=== PATIENT | female | born 1940 | race Caucasian/White ===

== ENCOUNTER → 2017-01-03 | Outpatient (CLI) | payer MEDICARE ==
[~2017-01-03] MED LIST: DEPA500T2; HYDR25TA6; LEVO88TA4; LISI20TA5; PLAV75TA2; POTA20TA2; PRAV40TA; VITAMIN D50000 UNT
--- NOTE | 2017-01-04 08:52 | DEXA ---
AP SPINE L1 - L4 0.949 -1.9 -0.1 LT FEMUR TOTAL 1.006 0.0 1.9 RT FEMUR TOTAL 0.966 -0.3 1.5 TOTAL BODY TOTAL OTHER DUAL FEMUR FRAX* ASSESSMENT Risk factors: Not performed. 10 year probability of fracture Major osteoporotic fracture % Hip fracture % COMMENTS: There is low bone density of the spine and hips. The density of the spine has decreased 3.6% since the initial exam on 1999. The spine density has increased 2.2% since the most recent exam on 11/17/2014. The density of the left hip has decreased 8.3% since the initial exam on 1999. The density of the left hip has decreased 1.1% since the most recent exam on . The density of the right hip has decreased 2.4% since the initial exam on 1999. The density of the right hip has decreased 4.5% since the most recent exam on . FOLLOW-UP: Recommendation for the next bone density exam: 2 years. ANNIE
== END ==
LOC: M WHC 08:45
PROVIDERS: ATTEND Nurse Practitioner Family
DX: M85.80 Other specified disorders of bone density and structure, unspecified site (principal)

== ENCOUNTER → 2017-01-11 | Outpatient (CLI) | payer MEDICARE ==
--- NOTE | 2017-01-12 07:30 | RADONC ---
RADIATION ONCOLOGY FOLLOWUP NOTE DATE: 01/11/2017 CHART NUMBER: [id number]. DIAGNOSIS: Left breast cancer. STAGE: IA, [id number]. ECOG PERFORMANCE STATUS: Zero. FOLLOWUP NOTE: Ms. Baxter is a very pleasant, 76-year-old white female with the diagnosis of a stage IA, [id number] moderately differentiated invasive ductal carcinoma of the left breast who is presenting to us today for routine followup visit 3 years and 2 months post completion of external beam radiation therapy. The patient presents today reporting that she is doing quite well with no complaints at this time related to her radiation therapy or disease. She has no breast or bone pain. REVIEW OF SYSTEMS: The patient's review of systems is noncontributory. Denies nausea, vomiting, fevers, chills, night sweats, diplopia, headaches, anxiety or depression, anorexia, weight loss, visual disturbances, chest pain, urinary or bowel difficulties, bone pain, or neurological problems. PHYSICAL EXAMINATION: The patient is a well-developed, well-nourished, 76-year-old white female, in no acute distress. HEENT exam is normocephalic, atraumatic. Extraocular movements are intact. There is no palpable cervical, supraclavicular, infraclavicular, axillary, or inguinal lymphadenopathy present. Lungs are clear to auscultation and percussion. Heart has a regular rate and rhythm. Abdomen is benign with no hepatosplenomegaly, masses, or tenderness. Breast examination reveals no masses or discharge bilaterally. Skeletal examination reveals no tenderness to pressure or percussion of the bony skeleton. Extremities reveal no clubbing, cyanosis, or edema. Neurologic exam is grossly intact, as is the remainder of the physical examination. ASSESSMENT: The patient is clinically CURRY at this time and will be seen by us again in 1 year for further followup. She will also continue to be followed by her other physicians as well. cc: MD Dawn Chen MD, FACP MD Yaya Greenwood PA Tammy Root, FERNANDEZ
== END ==
LOC: M ONCR 11:00
PROVIDERS: ATTEND Radiology Radiation Oncology
DX: C50.212 Malignant neoplasm of upper-inner quadrant of left female breast (principal)

== ENCOUNTER → 2018-01-10 | Outpatient (CLI) | payer MEDICARE | LOC: M ONCR 13:09 | DX: C50.212 Malignant neoplasm of upper-inner quadrant of left female breast (principal) | CPT/HCPCS: G0463 ==

== ENCOUNTER → 2018-08-14 | Outpatient (CLI) | payer MEDICARE ==
[~2018-08-14] MED LIST changes: +ANAS1TAB2 PO; +ASPI1TAB22 PO; +CALC1TAB8 PO; +KLOR10TA76 PO; +OLME1TAB15 PO; +PRAV40TA2 PO; +SYNT125T PO; +VITA2000 PO
--- NOTE | 2018-08-15 11:50 | REP ---
PET/CT: History: Restaging breast carcinoma. New lung mass. Comparisons: Chest CT study from [facility] July 31, 2018. CT abdomen from the same facility July 28, 2018. The chest CT is reported as showing numerous small pulmonary nodules. There are no remote prior chest CTs available. TECHNIQUE: 49 minutes following the intravenous injection of a 8.92 mCi dose of F-18 FDG, three-dimensional PET scintigraphy is acquired from the skull base to the proximal thighs. Triplanar noncontrast CT scanning is acquired through the same anatomic range for attenuation correction, and image registration with scan parameters optimized to minimize radiation exposure to the patient. PET scintigraphy and CT datasets were fused and displayed on a workstation with multiplanar and projection display capability. PET/CT Findings: There is no abnormal hypermetabolic uptake within the thorax. Head and neck soft tissues are unremarkable. 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 No abnormal hypermetabolic uptake is seen in the visualized intracranial contents. No abnormal pulmonary parenchymal hypermetabolic uptake is seen. No axillary or internal mammary alondra hypermetabolic uptake is seen. In the abdomen and pelvis, normal hepatic, splenic, gastrointestinal, and genitourinary FDG accumulation is seen. No abnormal hypermetabolic uptake is seen in the abdomen or pelvis. Impression: Negative PET scintigraphy. No abnormal hypermetabolic uptake is seen. Electronically Signed by Albert Morocho MD 08/15/2018 08:05 P
== END ==
LOC: M PLARAD 15:15
PROVIDERS: ATTEND Surgery
DX: Z85.3 Personal history of malignant neoplasm of breast (principal); R91.8 Other nonspecific abnormal finding of lung field
CPT/HCPCS: 78815; A9552

== ENCOUNTER → 2019-01-09 | Outpatient (CLI) | payer MEDICARE ==
--- NOTE | 2019-01-11 07:11 | RADONC ---
RADIATION ONCOLOGY FOLLOWUP NOTE DATE: 01/09/2019 CHART #: [id number] DIAGNOSIS: Left breast cancer. STAGE: I A, [id number]. ECOG PERFORMANCE STATUS: 0. FOLLOWUP NOTE: Mrs. Baxter is a 78-year-old woman with a diagnosis of stage I A, [id number], moderately differentiated invasive ductal carcinoma of the left breast who presents for a followup visit a little over 5 years status post completion of her external beam radiotherapy. She denies nausea, vomiting, coughing, sputum production or hemoptysis. Her energy level is adequate and she is able to maintain most of her day-to-day activities without any alteration of her lifestyle. PHYSICAL EXAMINATION: There is no palpable peripheral lymphadenopathy. The skin within the irradiated volume shows no evidence of significant skin changes. No masses are palpable on either breast. Lungs are clear. Heart: Regular. Abdomen: Without evidence of hepatomegaly, masses or deep abdominal tenderness. Extremities: Without cyanosis, clubbing or edema. Neurologic Examination: Physiologic. IMPRESSION: Clinically CURRY. PLAN: We would like to see her on a p.r.n. basis and she was advised to return to her referring physicians as per their directions. cc: MD North Chen MD Michael Hinman, PA Tammy Root, NP
== END ==
LOC: M ONCR 13:01
PROVIDERS: ATTEND Radiology Radiation Oncology
DX: C50.212 Malignant neoplasm of upper-inner quadrant of left female breast (principal)

== ENCOUNTER 2020-08-21 13:02 | Emergency (ER) | payer MEDICARE ==
[~2020-08-21] VITALS: Ht 149.9 cm; Wt 81.4 kg
[~2020-08-21 13:02] MED LIST changes: -OLME1TAB15 PO; +OLME1TAB53 PO
[2020-08-21] MEDS ORDERED: MECL-136 PO (13:38)
[2020-08-21] MEDS ORDERED: LOSA100T5 PO (13:38)
[2020-08-21] MEDS ORDERED: VITACAP8 PO (13:38)
[2020-08-21] MEDS ORDERED: FERR325T3 PO (13:38)
[2020-08-21] MEDS ORDERED: OMEP-218 PO (13:38)
[2020-08-21 14:26] LABS: HEMATOCRIT 26.9 % (36.0-47.0); HEMOGLOBIN 8.1 g/dl (12.0-15.5); MEAN CORPUSCULAR HEMOGLOBIN 25.1 pg (27.0-33.0); MEAN CORPUSCULAR HGB CONC 30.1 g/dl (32.0-36.5); MEAN CORPUSCULAR VOLUME 83.3 fl (80.0-96.0); PLATELET COUNT, AUTOMATED 200 10^3/uL (150-450); RED BLOOD COUNT 3.23 10^6/uL (4.00-5.40); WHITE BLOOD COUNT 3.7 10^3/uL (4.0-10.0)
[2020-08-21 14:37] LABS: INR 1.04; PROTHROMBIN TIME 13.8 SECONDS (12.5-14.3)
[2020-08-21 14:53] LABS: ALBUMIN 2.9 GM/DL (3.2-5.2); ALT/SGPT 28 U/L (12-78); BILIRUBIN,TOTAL 0.5 MG/DL (0.2-1.0); BLOOD UREA NITROGEN 22 MG/DL (7-18); CALCIUM LEVEL 9.2 MG/DL (8.8-10.2); CARBON DIOXIDE LEVEL 27 MEQ/L (21-32); CHLORIDE LEVEL 110 MEQ/L (98-107); CK-MB VALUE MASS 1.9 NG/ML (<3.6); CPK CREATINE PHOSPHOKINASE 86 U/L (26-192); CREATININE FOR GFR 0.85 MG/DL (0.55-1.30); GLOMERULAR FILTRATION RATE > 60.0 (>32); GLUCOSE, FASTING 159 MG/DL (70-100); MB/CK RELATIVE INDEX 2.21 (< OR =4); POTASSIUM SERUM 3.3 MEQ/L (3.5-5.1); SODIUM LEVEL 142 MEQ/L (136-145); TOTAL PROTEIN 6.8 GM/DL (6.4-8.2); TROPONIN I < 0.02 NG/ML (< 0.10)
[2020-08-21 15:31] LABS: FERRITIN 7 NG/ML (8-252); IRON (FE) 59 UG/DL (50-170); TOTAL IRON BINDING CAPACITY 421 UG/DL (250-450)
[2020-08-21 15:51] VITALS: BP 114/56
--- NOTE | 2020-08-21 18:21 | ECGEPIP ---
[facility] - ED Test Date: 2020-08-21 Pat Name: TRACY LEVINE Department: Room: - Gender: Female Medical Clerical Assistant: LAURENCE : 1940 Requested By: Radha Alex Order Number: [id number] Reading MD: Fidel Downey Measurements Intervals [place] Rate: 100 P: 68 DE: 180 QRS: -43 QRSD: 128 T: 69 QT: 394 QTc: 508 Interpretive Statements Normal sinus rhythm Left axis deviation Nonspecific intraventricular block Minimal voltage criteria for LVH, may be normal variant baseline artifact Comparison tracing not on file Electronically Signed on 08-21-2020 18:21:08 EDT by Fidel Downey
== END 2020-08-21 15:54 | disposition home or self-care (01) ==
LOC: M ED 13:02
DX: D50.9 Iron deficiency anemia, unspecified (principal); I10 Essential (primary) hypertension; E07.9 Disorder of thyroid, unspecified; E78.5 Hyperlipidemia, unspecified; G43.909 Migraine, unspecified, not intractable, without status migrainosus; Z79.899 Other long term (current) drug therapy; Z79.82 Long term (current) use of aspirin; Z79.890 Hormone replacement therapy

== ENCOUNTER 2022-05-04 21:40 | Inpatient (IN) | payer MEDICARE, BC ==
[~2022-05-04] VITALS: Ht 149.9 cm; Wt 81.0 kg
[2022-05-04] MEDS: PANTOPRAZOLE 40MG VIAL IV SCH (21:00)
[~2022-05-04 21:40] MED LIST changes: -CIPR250T3 PO; -FERR324T21 PO; -FURO40TA2 PO; -LOSA100T45 PO; -OMEP1CAP73 PO; -RA B1TAB2 PO; -SYNT112T2 PO; -VITA200016 PO
[2022-05-04 22:50] LABS: BASO # 0.1 10^3/uL (0.0-0.2); BASO % 1.3 % (0.0-1.0); EOS # 0.2 10^3/uL (0.0-0.5); EOS % 5.4 % (0.0-3.0); HEMATOCRIT 21.8 % (36.0-47.0); LYMPH # 0.7 10^3/uL (1.5-5.0); LYMPH % 17.4 % (24.0-44.0); MEAN CORPUSCULAR HEMOGLOBIN 25.9 pg (27.0-33.0); MEAN CORPUSCULAR HGB CONC 28.4 g/dl (32.0-36.5); MEAN CORPUSCULAR VOLUME 91.2 fl (80.0-96.0); MONO # 0.5 10^3/uL (0.0-0.8); MONO % 13.1 % (2.0-8.0); NEUTROPHILS # 2.3 10^3/uL (1.5-8.5); NEUTROPHILS % 62.5 % (36.0-66.0); PLATELET COUNT, AUTOMATED 162 10^3/uL (150-450); RED BLOOD COUNT 2.39 10^6/uL (4.00-5.40); WHITE BLOOD COUNT 3.7 10^3/uL (4.0-10.0)
[2022-05-04 22:51] LABS: HEMOGLOBIN 6.2 g/dl (12.0-15.5)
[2022-05-04 23:09] LABS: CK-MB VALUE MASS < 1.0 NG/ML (<3.6); LIPASE 37 U/L (12-53)
[2022-05-04 23:11] LABS: ALBUMIN 2.4 G/DL (3.2-5.2); ALKALINE PHOSPHATASE 114 U/L (46-116); ALT/SGPT 37 U/L (7.0-40); AST/SGOT 46 U/L (<34); BILIRUBIN,DIRECT 0.2 MG/DL (<0.4); BILIRUBIN,TOTAL 0.4 MG/DL (0.3-1.2); BLOOD UREA NITROGEN 20 MG/DL (9-23); CALCIUM LEVEL 8.2 MG/DL (8.3-10.6); CARBON DIOXIDE LEVEL 26 MMOL/L (20-31); CHLORIDE LEVEL 110 MMOL/L (98-107); CPK CREATINE PHOSPHOKINASE 63 U/L (34-145); CREATININE FOR GFR 0.89 MG/DL (0.55-1.30); GLOMERULAR FILTRATION RATE > 60.0 (>32); GLUCOSE, FASTING 125 MG/DL (74-106); MB/CK RELATIVE INDEX 1.58 (< OR =4); POTASSIUM SERUM 4.2 MMOL/L (3.5-5.1); SODIUM LEVEL 144 MMOL/L (136-145); TOTAL PROTEIN 5.6 G/DL (5.7-8.2)
[2022-05-05] VITALS (10 sets, daily range): BP systolic 126–152; BP diastolic 63–87
[2022-05-05] MEDS ORDERED: FUROSEMIDE 40MG/4ML VIAL IV ONE (01:00)
[2022-05-05] MEDS ORDERED: VITA200016 PO (01:09)
[2022-05-05] MEDS ORDERED: FURO40TA2 PO (01:09)
[2022-05-05] MEDS ORDERED: FERR324T21 PO (01:09)
[2022-05-05] MEDS ORDERED: SYNT112T2 PO (01:09)
[2022-05-05] MEDS ORDERED: RA B1TAB2 PO (01:09)
[2022-05-05] MEDS ORDERED: LOSA100T45 PO (01:09)
[2022-05-05] MEDS ORDERED: OMEP1CAP73 PO (01:09)
[2022-05-05] MEDS ORDERED: CIPR250T3 PO (01:09)
[2022-05-05] MEDS ORDERED: MECL-136 PO (01:09)
[2022-05-05] MEDS ORDERED: HOME MED LIST COMPLETE! XX SCH (01:15)
[2022-05-05 01:42] LABS: RSV AMPLIFICATION NEGATIVE (NEGATIVE)
[2022-05-05 06:04] LABS: HEMATOCRIT 28.9 % (36.0-47.0); MEAN CORPUSCULAR HEMOGLOBIN 26.7 pg (27.0-33.0); MEAN CORPUSCULAR HGB CONC 30.4 g/dl (32.0-36.5); MEAN CORPUSCULAR VOLUME 87.8 fl (80.0-96.0); PLATELET COUNT, AUTOMATED 159 10^3/uL (150-450); RED BLOOD COUNT 3.29 10^6/uL (4.00-5.40)
[2022-05-05 06:21] LABS: HEMOGLOBIN 8.8 g/dl (12.0-15.5)
[2022-05-05 06:28] LABS: IRON (FE) 279 UG/DL (50-170); PERCENT SATURATION 72.1 % (13.2-45.0); TOTAL IRON BINDING CAPACITY 387 UG/DL (250-425)
[2022-05-05 06:29] LABS: BLOOD UREA NITROGEN 18 MG/DL (9-23); CALCIUM LEVEL 8.3 MG/DL (8.3-10.6); CARBON DIOXIDE LEVEL 26 MMOL/L (20-31); CHLORIDE LEVEL 109 MMOL/L (98-107); CREATININE FOR GFR 0.85 MG/DL (0.55-1.30); GLOMERULAR FILTRATION RATE > 60.0 (>32); GLUCOSE, FASTING 115 MG/DL (74-106); POTASSIUM SERUM 3.8 MMOL/L (3.5-5.1); SODIUM LEVEL 143 MMOL/L (136-145)
[2022-05-05 06:31] LABS: FERRITIN 6.7 NG/ML (7.3-270.7)
[2022-05-05] MEDS ORDERED: FUROSEMIDE 40MG/4ML VIAL IV SCH (09:00)
[2022-05-05] MEDS ORDERED: MECLIZINE 12.5 MG TAB PO PRN (11:10)
[2022-05-05] MEDS ORDERED: ISOVUE-370 76% 100ML VIAL As Ordered ONE (11:13)
[2022-05-05] MEDS ORDERED: FERRIC CARBOXYMALTOSE INJ 750 MG, VIAL MATE ADAPTER 1 EACH in NS 250 ML IV ONE (13:00)
[2022-05-05] MEDS: LOSARTAN 50MG TABLET PO SCH (13:39)
[2022-05-05] MEDS: cefTRIAXone SOD 1 GM in D5W MINI-BAG PLUS 50 ML IV SCH (13:39)
[2022-05-05] MEDS: PANTOPRAZOLE 40MG VIAL IV SCH ×2 (13:40→20:16)
[2022-05-05] MEDS: LEVOTHYROXINE 112MCG TABLET (0.112MG) PO SCH (13:47)
[2022-05-05 14:46] LABS: HEPATITIS B SURFACE ANTIGEN NEGATIVE (NEGATIVE)
[2022-05-05] MEDS ORDERED: OCTREOTIDE ACETATE 1,200 MCG in NS 238.8 ML IV SCH (15:00)
[2022-05-05 15:07] LABS: HEPATITIS B CORE ANTIBODY IGM NEGATIVE (NEGATIVE); HEPATITIS C VIRUS ABY INDEX 0.1 INDEX (<0.8)
[2022-05-05] MEDS: ACETAMINOPHEN 500 MG TAB PO PRN (16:33)
[2022-05-05] MEDS: PRAVASTATIN 20 MG TAB PO SCH (20:16)
[2022-05-06 05:02] VITALS: BP 121/68
[2022-05-06] MEDS: LEVOTHYROXINE 112MCG TABLET (0.112MG) PO SCH (05:30)
[2022-05-06 06:10] LABS: HEMATOCRIT 26.8 % (36.0-47.0); MEAN CORPUSCULAR HEMOGLOBIN 26.5 pg (27.0-33.0); MEAN CORPUSCULAR HGB CONC 29.9 g/dl (32.0-36.5); MEAN CORPUSCULAR VOLUME 88.7 fl (80.0-96.0); PLATELET COUNT, AUTOMATED 139 10^3/uL (150-450); RED BLOOD COUNT 3.02 10^6/uL (4.00-5.40); WHITE BLOOD COUNT 3.6 10^3/uL (4.0-10.0)
[2022-05-06 06:44] LABS: MAGNESIUM LEVEL 1.9 MG/DL (1.8-2.4)
[2022-05-06 06:50] LABS: ALBUMIN 2.3 G/DL (3.2-5.2); ALKALINE PHOSPHATASE 102 U/L (46-116); ALT/SGPT 31 U/L (7.0-40); AST/SGOT 30 U/L (<34); BILIRUBIN,TOTAL 1.2 MG/DL (0.3-1.2); BLOOD UREA NITROGEN 15 MG/DL (9-23); CALCIUM LEVEL 8.3 MG/DL (8.3-10.6); CARBON DIOXIDE LEVEL 26 MMOL/L (20-31); CHLORIDE LEVEL 107 MMOL/L (98-107); CREATININE FOR GFR 0.86 MG/DL (0.55-1.30); GLOMERULAR FILTRATION RATE > 60.0 (>32); GLUCOSE, FASTING 119 MG/DL (74-106); POTASSIUM SERUM 4.2 MMOL/L (3.5-5.1); SODIUM LEVEL 141 MMOL/L (136-145); TOTAL PROTEIN 5.3 G/DL (5.7-8.2)
[2022-05-06] MEDS ORDERED: ASPIRIN 81MG ENTERIC TABLET PO SCH (09:00)
[2022-05-06] MEDS ORDERED: LIDOCAINE 2% 100MG/5ML SDV (FOR ANES.) As Ordered ONE (09:26)
[2022-05-06] MEDS ORDERED: propofoL 200 MG/20 ML VIAL As Ordered ONE ×2 (09:26→11:30)
[2022-05-06] MEDS: PANTOPRAZOLE 40MG VIAL IV SCH ×2 (10:25→20:33)
[2022-05-06] MEDS: LOSARTAN 50MG TABLET PO SCH (10:26)
[2022-05-06] MEDS ORDERED: LIDOCAINE 1% MDV 20ML VIAL As Ordered ONE (13:30)
[2022-05-06 14:00] VITALS: BP 126/65
[2022-05-06] MEDS: cefTRIAXone SOD 1 GM in D5W MINI-BAG PLUS 50 ML IV SCH (14:26)
[2022-05-06] MEDS: ACETAMINOPHEN 500 MG TAB PO PRN (14:29)
[2022-05-06 15:34] LABS: SOURCE, BODY FLUID ALBUMIN ASCITES
[2022-05-06 15:39] LABS: SOURCE, BODY FLUID GLUCOSE ASCITES
[2022-05-06 15:41] LABS: SOURCE, BODY FLUID TOT PROTEIN ASCITES; TOTAL PROTEIN, BODY FLUID < 2.0 G/DL (NOT ESTABLISHED)
[2022-05-06 16:06] LABS: APPEARANCE, BODY FLUID HAZY (CLEAR); ASCITES FL COLOR YELLOW (COLORLESS); SOURCE, BODY FLUID ASCITES
[2022-05-06 20:00] VITALS: BP 134/62
[2022-05-06] MEDS: PRAVASTATIN 20 MG TAB PO SCH (20:33)
[2022-05-07] MEDS: LEVOTHYROXINE 112MCG TABLET (0.112MG) PO SCH (05:19)
[2022-05-07 05:45] VITALS: BP 120/59
[2022-05-07 06:08] LABS: HEMATOCRIT 28.2 % (36.0-47.0); MEAN CORPUSCULAR HGB CONC 28.4 g/dl (32.0-36.5); MEAN CORPUSCULAR VOLUME 91.6 fl (80.0-96.0); PLATELET COUNT, AUTOMATED 142 10^3/uL (150-450); RED BLOOD COUNT 3.08 10^6/uL (4.00-5.40); WHITE BLOOD COUNT 3.9 10^3/uL (4.0-10.0)
[2022-05-07 06:32] LABS: MAGNESIUM LEVEL 1.8 MG/DL (1.8-2.4)
[2022-05-07 06:34] LABS: ALBUMIN 2.1 G/DL (3.2-5.2); ALKALINE PHOSPHATASE 92 U/L (46-116); ALT/SGPT 27 U/L (7.0-40); AST/SGOT 48 U/L (<34); BILIRUBIN,TOTAL 0.6 MG/DL (0.3-1.2); BLOOD UREA NITROGEN 14 MG/DL (9-23); CALCIUM LEVEL 7.9 MG/DL (8.3-10.6); CARBON DIOXIDE LEVEL 24 MMOL/L (20-31); CHLORIDE LEVEL 107 MMOL/L (98-107); CREATININE FOR GFR 0.85 MG/DL (0.55-1.30); GLOMERULAR FILTRATION RATE > 60.0 (>32); GLUCOSE, FASTING 124 MG/DL (74-106); POTASSIUM SERUM 4.3 MMOL/L (3.5-5.1); SODIUM LEVEL 139 MMOL/L (136-145); TOTAL PROTEIN 5.3 G/DL (5.7-8.2)
[2022-05-07] MEDS ORDERED: ASPIRIN 81MG CHEW TABLET PO SCH (09:00)
[2022-05-07 09:21] VITALS: BP 117/59
[2022-05-07 09:25] VITALS: BP 117/59
[2022-05-07] MEDS: PANTOPRAZOLE 40MG VIAL IV SCH (09:25)
[2022-05-07] MEDS: LOSARTAN 50MG TABLET PO SCH (09:25)
[2022-05-07] MEDS ORDERED: LASI20TA3 PO (10:55)
[2022-05-07] MEDS ORDERED: COZA50TA PO ×2 (10:55→15:23)
[2022-05-07] MEDS ORDERED: ASPI81CH8 PO ×2 (10:55→15:23)
[2022-05-07] MEDS ORDERED: CEFD300C41 PO ×2 (11:53→15:23)
[2022-05-07] MEDS ORDERED: ESSE250T PO ×2 (12:35→15:23)
[2022-05-07] MEDS ORDERED: OMEP40CA4 PO ×2 (12:35→15:23)
[2022-05-07] MEDS: cefTRIAXone SOD 1 GM in D5W MINI-BAG PLUS 50 ML IV SCH (13:14)
[2022-05-07] MEDS ORDERED: FURO40TA2 PO (15:23)
== END 2022-05-07 14:49 | disposition home or self-care (01) | DRG 812 ==
LOC: M ED 21:40 → M ED INP 05-05 00:57 → ENRESERV 05-05 10:54 → M MSPAV 05-05 12:25
PROVIDERS: ADMIT Internal Medicine; ATTEND Internal Medicine
PROC: 30233N1 Transfusion of Nonautologous Red Blood Cells into Peripheral Vein, Percutaneous Approach (ICD-10-PCS; 2022-05-04)
PROC: B246ZZZ Ultrasonography of Right and Left Heart (ICD-10-PCS; 2022-05-05)
PROC: 0W9G3ZX Drainage of Peritoneal Cavity, Percutaneous Approach, Diagnostic (ICD-10-PCS; 2022-05-06)
PROC: 0DJ08ZZ Inspection of Upper Intestinal Tract, Via Natural or Artificial Opening Endoscopic (ICD-10-PCS; principal; 2022-05-06 12:00)
DX: D50.9 Iron deficiency anemia, unspecified (principal); R18.8 Other ascites; K76.6 Portal hypertension; N39.0 Urinary tract infection, site not specified; E03.9 Hypothyroidism, unspecified; I10 Essential (primary) hypertension; H81.10 Benign paroxysmal vertigo, unspecified ear; K74.60 Unspecified cirrhosis of liver; I87.2 Venous insufficiency (chronic) (peripheral); K29.80 Duodenitis without bleeding; K29.70 Gastritis, unspecified, without bleeding; Z66 Do not resuscitate; Z85.3 Personal history of malignant neoplasm of breast; Z86.73 Personal history of transient ischemic attack (TIA), and cerebral infarction without residual deficits; Z79.82 Long term (current) use of aspirin; Z79.890 Hormone replacement therapy; Z79.899 Other long term (current) drug therapy; Z92.3 Personal history of irradiation

== ENCOUNTER → 2022-05-04 | Outpatient (CLI) | payer MEDICARE ==
[~2022-05-04] MED LIST changes: +ASPI81CH8 PO; -CALC1TAB8 PO; +CALC600T67 PO; +CEFD300C41 PO; +CIPR250T3 PO; +COZA50TA PO; +ESSE250T PO; +FERR324T21 PO; +FERR325T3 PO; +FURO40TA2 PO; -KLOR10TA76 PO; +LASI20TA3 PO; +LEVO112T2; +LOSA100T45 PO; +LOSA100T5 PO; +MECL-136 PO; +OMEP-173 PO; +OMEP1CAP73 PO; +OMEP40CA4 PO; +POTA-136 PO; +RA B1TAB2 PO; +SYNT112T2 PO; +VITA1CHW7 PO; +VITA200016 PO; +VITACAP8 PO
== END ==
LOC: M WUC 09:41
PROVIDERS: ATTEND Physician Assistant
DX: R06.02 Shortness of breath (principal); R91.8 Other nonspecific abnormal finding of lung field

== ENCOUNTER → 2022-05-04 | Outpatient (CLI) | payer MEDICARE ==
[~2022-05-04] MED LIST changes: -ASPI81CH8 PO; -CEFD300C41 PO; -COZA50TA PO; -ESSE250T PO; -LASI20TA3 PO; -OMEP40CA4 PO
[2022-05-04 20:03] LABS: MAGNESIUM LEVEL 2.1 MG/DL (1.8-2.4); MEAN CORPUSCULAR HEMOGLOBIN 26.4 pg (27.0-33.0); MEAN CORPUSCULAR HGB CONC 28.6 g/dl (32.0-36.5); MEAN CORPUSCULAR VOLUME 92.1 fl (80.0-96.0); PLATELET COUNT, AUTOMATED 160 10^3/uL (150-450); RED BLOOD COUNT 2.39 10^6/uL (4.00-5.40); WHITE BLOOD COUNT 4.5 10^3/uL (4.0-10.0)
[2022-05-04 20:04] LABS: BLOOD UREA NITROGEN 20 MG/DL (9-23); CALCIUM LEVEL 8.3 MG/DL (8.3-10.6); CARBON DIOXIDE LEVEL 26 MMOL/L (20-31); CHLORIDE LEVEL 109 MMOL/L (98-107); CREATININE FOR GFR 0.91 MG/DL (0.55-1.30); GLOMERULAR FILTRATION RATE > 60.0 (>32); GLUCOSE, FASTING 138 MG/DL (74-106); SODIUM LEVEL 144 MMOL/L (136-145)
[2022-05-04 20:28] LABS: HEMOGLOBIN 6.3 g/dl (12.0-15.5)
== END ==
LOC: M WUC 15:53
PROVIDERS: ATTEND Physician Assistant
DX: I50.9 Heart failure, unspecified (principal)

== ENCOUNTER 2022-07-11 15:27 | Inpatient (IN) | payer MEDICARE, BC ==
[~2022-07-11] VITALS: Ht 149.9 cm; Wt 82.5 kg
[~2022-07-11 15:27] MED LIST changes: +ASPI81CH8 PO; +CEFD300C41 PO; +CIPR250T3 PO; +COZA50TA PO; +ESSE250T PO; +FERR324T21 PO; +FURO20TA2 PO; +FURO40TA2 PO; +LASI20TA3 PO; +LOSA100T45 PO; +OMEP1CAP73 PO; +OMEP40CA4 PO; +RA B1TAB2 PO; +SYNT112T2 PO; +VITA200016 PO
[2022-07-11 16:27] LABS: VENOUS BASE EXCESS 4.7 (-2.0-2.0); VENOUS O2 SATURATION 91.8 % (60.0-80.0); VENOUS PARTIAL PRESSURE CO2 42.1 mmHg (38.0-50.0); VENOUS PARTIAL PRESSURE O2 62.7 mmHg (30.0-50.0); VENOUS PH 7.456 UNITS (7.330-7.430); VENOUS STANDARD HCO3 28.6 MEQ/L; VENOUS TOTAL CO2 30.3 MEQ/L (24.0-28.0)
[2022-07-11 16:32] LABS: BASO % 0.3 % (0.0-1.0); EOS # 0.2 10^3/uL (0.0-0.5); EOS % 3.1 % (0.0-3.0); HEMATOCRIT 27.9 % (36.0-47.0); HEMOGLOBIN 8.3 g/dl (12.0-15.5); LYMPH # 0.6 10^3/uL (1.5-5.0); LYMPH % 9.9 % (24.0-44.0); MEAN CORPUSCULAR HEMOGLOBIN 25.2 pg (27.0-33.0); MEAN CORPUSCULAR HGB CONC 29.7 g/dl (32.0-36.5); MEAN CORPUSCULAR VOLUME 84.5 fl (80.0-96.0); MONO # 0.6 10^3/uL (0.0-0.8); MONO % 10.4 % (2.0-8.0); NEUTROPHILS # 4.6 10^3/uL (1.5-8.5); PLATELET COUNT, AUTOMATED 203 10^3/uL (150-450); WHITE BLOOD COUNT 6.1 10^3/uL (4.0-10.0)
[2022-07-11] MEDS ORDERED: FUROSEMIDE 40MG/4ML VIAL IV ONE (16:40)
[2022-07-11 16:50] LABS: INR 1.13; PROTHROMBIN TIME 14.7 SECONDS (12.5-14.5)
[2022-07-11 16:59] LABS: ALBUMIN 2.5 G/DL (3.2-5.2); ALKALINE PHOSPHATASE 123 U/L (46-116); ALT/SGPT 44 U/L (7.0-40); AST/SGOT 33 U/L (<34); BILIRUBIN,DIRECT 0.4 MG/DL (<0.4); BILIRUBIN,TOTAL 1.2 MG/DL (0.3-1.2); BLOOD UREA NITROGEN 20 MG/DL (9-23); CALCIUM LEVEL 8.6 MG/DL (8.3-10.6); CARBON DIOXIDE LEVEL 31 MMOL/L (20-31); CHLORIDE LEVEL 103 MMOL/L (98-107); CREATININE FOR GFR 0.72 MG/DL (0.55-1.30); GLOMERULAR FILTRATION RATE > 60.0 (>32); GLUCOSE, FASTING 118 MG/DL (74-106); SODIUM LEVEL 142 MMOL/L (136-145); TOTAL PROTEIN 5.9 G/DL (5.7-8.2)
[2022-07-11 17:08] LABS: RSV AMPLIFICATION NEGATIVE (NEGATIVE)
[2022-07-11] MEDS ORDERED: POTASSIUM CHLORIDE 10MEQ SR TABLET PO ONE (17:15)
[2022-07-11] MEDS ORDERED: FURO40TA2 PO (19:35)
[2022-07-11] MEDS ORDERED: ASPI81CH33 PO (19:35)
[2022-07-11] MEDS ORDERED: HOME MED LIST COMPLETE! XX SCH (19:40)
[2022-07-11 21:45] VITALS: BP 119/62
[2022-07-11 23:15] LABS: HEMATOCRIT 25.8 % (36.0-47.0); HEMOGLOBIN 7.7 g/dl (12.0-15.5)
[2022-07-11 23:58] LABS: BLOOD UREA NITROGEN 19 MG/DL (9-23); CARBON DIOXIDE LEVEL 30 MMOL/L (20-31); CHLORIDE LEVEL 103 MMOL/L (98-107); GLOMERULAR FILTRATION RATE > 60.0 (>32); GLUCOSE, FASTING 245 MG/DL (74-106); POTASSIUM SERUM 2.9 MMOL/L (3.5-5.1); SODIUM LEVEL 140 MMOL/L (136-145)
[2022-07-12] VITALS (7 sets, daily range): BP systolic 109–135; BP diastolic 58–76
[2022-07-12] MEDS ORDERED: PANTOPRAZOLE 40MG VIAL IV ONE (00:10)
[2022-07-12] MEDS: POTASSIUM CHLORIDE 10MEQ SR TABLET PO SCH ×2 (00:25→02:05)
[2022-07-12] MEDS: LEVOTHYROXINE 112MCG TABLET (0.112MG) PO SCH (05:47)
[2022-07-12 06:13] LABS: HEMATOCRIT 28.4 % (36.0-47.0); HEMOGLOBIN 8.8 g/dl (12.0-15.5); MEAN CORPUSCULAR HEMOGLOBIN 26.3 pg (27.0-33.0); MEAN CORPUSCULAR VOLUME 84.8 fl (80.0-96.0); PLATELET COUNT, AUTOMATED 182 10^3/uL (150-450); RED BLOOD COUNT 3.35 10^6/uL (4.00-5.40); WHITE BLOOD COUNT 5.2 10^3/uL (4.0-10.0)
[2022-07-12 06:55] LABS: ALBUMIN 2.2 G/DL (3.2-5.2); ALKALINE PHOSPHATASE 116 U/L (46-116); ALT/SGPT 38 U/L (7.0-40); AST/SGOT 27 U/L (<34); BILIRUBIN,TOTAL 2.2 MG/DL (0.3-1.2); BLOOD UREA NITROGEN 19 MG/DL (9-23); CALCIUM LEVEL 8.1 MG/DL (8.3-10.6); CARBON DIOXIDE LEVEL 31 MMOL/L (20-31); CHLORIDE LEVEL 107 MMOL/L (98-107); CREATININE FOR GFR 0.69 MG/DL (0.55-1.30); GLOMERULAR FILTRATION RATE > 60.0 (>32); GLUCOSE, FASTING 109 MG/DL (74-106); POTASSIUM SERUM 3.7 MMOL/L (3.5-5.1); SODIUM LEVEL 141 MMOL/L (136-145); TOTAL PROTEIN 5.1 G/DL (5.7-8.2)
[2022-07-12] MEDS: FUROSEMIDE 20 MG TAB PO SCH (08:55)
[2022-07-12] MEDS: PANTOPRAZOLE 40MG VIAL IV SCH ×2 (08:55→20:12)
[2022-07-12 15:14] LABS: SOURCE, BODY FLUID ASCITES
[2022-07-12 15:15] LABS: APPEARANCE, BODY FLUID CLOUDY (CLEAR); ASCITES FL COLOR PALE YELLOW (COLORLESS)
[2022-07-12 15:50] LABS: SOURCE, BODY FLUID ALBUMIN ASCITES
[2022-07-12 15:54] LABS: SOURCE, BODY FLUID GLUCOSE ASCITES
[2022-07-12 15:58] LABS: SOURCE, BODY FLUID TOT PROTEIN ASCITES; TOTAL PROTEIN, BODY FLUID < 2.0 G/DL (NOT ESTABLISHED)
[2022-07-12] MEDS ORDERED: ACETAMINOPHEN TAB 650MG DOSE (2X325MG) PO PRN (20:20)
[2022-07-12] MEDS ORDERED: PRAVASTATIN 20 MG TAB PO SCH (21:00)
[2022-07-13 06:00] VITALS: BP 124/65
[2022-07-13] MEDS: LEVOTHYROXINE 112MCG TABLET (0.112MG) PO SCH (06:07)
[2022-07-13] MEDS: PANTOPRAZOLE 40MG VIAL IV SCH (10:54)
[2022-07-13] MEDS: FUROSEMIDE 20 MG TAB PO SCH (10:54)
== END 2022-07-13 14:22 | disposition home health service (06) | DRG 433 ==
LOC: M ED 15:27 → M ED INP 20:06 → M MSPAV 21:45
PROVIDERS: ADMIT Family Medicine; ATTEND General Practice
PROC: 30233N1 Transfusion of Nonautologous Red Blood Cells into Peripheral Vein, Percutaneous Approach (ICD-10-PCS; 2022-07-11)
PROC: 0W9G3ZZ Drainage of Peritoneal Cavity, Percutaneous Approach (ICD-10-PCS; principal; 2022-07-12 10:00)
DX: K74.60 Unspecified cirrhosis of liver (principal); I69.351 Hemiplegia and hemiparesis following cerebral infarction affecting right dominant side; R18.8 Other ascites; I10 Essential (primary) hypertension; E78.5 Hyperlipidemia, unspecified; K64.9 Unspecified hemorrhoids; K21.9 Gastro-esophageal reflux disease without esophagitis; M19.90 Unspecified osteoarthritis, unspecified site; E03.9 Hypothyroidism, unspecified; E87.6 Hypokalemia; R91.1 Solitary pulmonary nodule; D63.8 Anemia in other chronic diseases classified elsewhere; H81.10 Benign paroxysmal vertigo, unspecified ear; K42.9 Umbilical hernia without obstruction or gangrene; Z66 Do not resuscitate; Z85.3 Personal history of malignant neoplasm of breast; Z85.828 Personal history of other malignant neoplasm of skin; Z86.010 Personal history of colon polyps; Z79.82 Long term (current) use of aspirin; Z79.890 Hormone replacement therapy; Z79.899 Other long term (current) drug therapy

== ENCOUNTER 2022-07-28 11:20 | Inpatient (IN) | payer MEDICARE, BC ==
[~2022-07-28] VITALS: Ht 149.9 cm; Wt 73.9 kg
[2022-07-28] MEDS: OMEPRAZOLE 20MG CAP PO SCH (09:00)
[~2022-07-28 11:20] MED LIST changes: +ASPI81CH33 PO
[2022-07-28 12:13] LABS: BASO % 0.2 % (0.0-1.0); EOS % 0.2 % (0.0-3.0); HEMATOCRIT 29.3 % (36.0-47.0); HEMOGLOBIN 8.7 g/dl (12.0-15.5); LYMPH # 0.3 10^3/uL (1.5-5.0); LYMPH % 1.8 % (24.0-44.0); MEAN CORPUSCULAR HEMOGLOBIN 25.6 pg (27.0-33.0); MEAN CORPUSCULAR HGB CONC 29.7 g/dl (32.0-36.5); MEAN CORPUSCULAR VOLUME 86.2 fl (80.0-96.0); MONO # 0.7 10^3/uL (0.0-0.8); MONO % 4.6 % (2.0-8.0); NEUTROPHILS # 14.4 10^3/uL (1.5-8.5); NEUTROPHILS % 91.5 % (36.0-66.0); PLATELET COUNT, AUTOMATED 156 10^3/uL (150-450); WHITE BLOOD COUNT 15.7 10^3/uL (4.0-10.0)
[2022-07-28 12:25] LABS: INR 1.31; PROTHROMBIN TIME 16.5 SECONDS (12.5-14.5)
[2022-07-28 12:34] LABS: LIPASE 31 U/L (12-53)
[2022-07-28 12:36] LABS: CPK CREATINE PHOSPHOKINASE 30 U/L (34-145)
[2022-07-28 12:49] LABS: RSV AMPLIFICATION NEGATIVE (NEGATIVE)
[2022-07-28 12:51] LABS: ALBUMIN 1.9 G/DL (3.2-5.2); ALKALINE PHOSPHATASE 115 U/L (46-116); ALT/SGPT 40 U/L (7.0-40); AST/SGOT 18 U/L (<34); BILIRUBIN,DIRECT 0.5 MG/DL (<0.4); BILIRUBIN,TOTAL 1.3 MG/DL (0.3-1.2); BLOOD UREA NITROGEN 37 MG/DL (9-23); CALCIUM LEVEL 8.1 MG/DL (8.3-10.6); CARBON DIOXIDE LEVEL 33 MMOL/L (20-31); CHLORIDE LEVEL 101 MMOL/L (98-107); CK-MB VALUE MASS 1.3 NG/ML (<3.6); CREATININE FOR GFR 0.92 MG/DL (0.55-1.30); FREE T4 1.45 NG/DL (0.89-1.76); GLOMERULAR FILTRATION RATE > 60.0 (>32); GLUCOSE, FASTING 115 MG/DL (74-106); MB/CK RELATIVE INDEX 4.33 (< OR =4); POTASSIUM SERUM 2.8 MMOL/L (3.5-5.1); SODIUM LEVEL 141 MMOL/L (136-145); THYROID STIMULATING HORMONE 0.199 uIU/ML (0.55-4.78)
[2022-07-28] MEDS ORDERED: POTASSIUM CHLORIDE 10MEQ SR TABLET PO ONE (13:05)
[2022-07-28] MEDS ORDERED: KCL 10MEQ/100ML SWI (KRUN) 10 MEQ in IV 1 EA IV ONE (13:05)
[2022-07-28] MEDS ORDERED: NS 1,000 ML IV SCH (13:05)
[2022-07-28 13:07] LABS: ERYTHROCYTE SEDIMENTATION RATE 20 mm/hr (0-30)
[2022-07-28] MEDS ORDERED: CARV6.25 PO (14:26)
[2022-07-28] MEDS ORDERED: FERR324T21 PO (14:26)
[2022-07-28] MEDS ORDERED: OMEP40CA4 PO (14:26)
[2022-07-28] MEDS ORDERED: ECOT81TA5 PO (14:26)
[2022-07-28] MEDS ORDERED: HOME MED LIST COMPLETE! XX SCH (14:30)
[2022-07-28] MEDS ORDERED: MECLIZINE 12.5 MG TAB PO PRN (14:50)
[2022-07-28] MEDS ORDERED: MIDODRINE 2.5 MG TAB PO PRN (17:35)
[2022-07-28 17:52] VITALS: BP 106/49
[2022-07-28] MEDS: FUROSEMIDE 40MG/4ML VIAL IV SCH (18:35)
[2022-07-28 18:39] VITALS: BP 100/45
[2022-07-28 20:17] VITALS: BP 95/54
[2022-07-28] MEDS: ASPIRIN 81MG ENTERIC TABLET PO SCH (20:18)
[2022-07-28] MEDS: PRAVASTATIN 20 MG TAB PO SCH (20:19)
[2022-07-28] MEDS: HEPARIN SOD (PORCINE) 5000UNITS/ML 1ML VIAL/SYRINGE SC SCH (20:19)
[2022-07-28 20:29] VITALS: BP 95/54
[2022-07-28 20:35] LABS: BLOOD UREA NITROGEN 36 MG/DL (9-23); CALCIUM LEVEL 8.1 MG/DL (8.3-10.6); CARBON DIOXIDE LEVEL 32 MMOL/L (20-31); CHLORIDE LEVEL 103 MMOL/L (98-107); CREATININE FOR GFR 0.83 MG/DL (0.55-1.30); GLOMERULAR FILTRATION RATE > 60.0 (>32); GLUCOSE, FASTING 157 MG/DL (74-106); POTASSIUM SERUM 2.8 MMOL/L (3.5-5.1); SODIUM LEVEL 141 MMOL/L (136-145)
[2022-07-28] MEDS: POTASSIUM CHLORIDE 10MEQ SR TABLET PO SCH ×2 (21:05→23:07)
[2022-07-28 21:34] VITALS: BP 109/53
[2022-07-28 23:04] VITALS: BP 95/48
[2022-07-29] VITALS (7 sets, daily range): BP systolic 96–108; BP diastolic 48–60
[2022-07-29] MEDS: LEVOTHYROXINE 112MCG TABLET (0.112MG) PO SCH (05:28)
[2022-07-29] MEDS: HEPARIN SOD (PORCINE) 5000UNITS/ML 1ML VIAL/SYRINGE SC SCH ×3 (05:29→20:46)
[2022-07-29 06:56] LABS: HEMATOCRIT 25.8 % (36.0-47.0); HEMOGLOBIN 7.9 g/dl (12.0-15.5); MEAN CORPUSCULAR HEMOGLOBIN 26.1 pg (27.0-33.0); MEAN CORPUSCULAR HGB CONC 30.6 g/dl (32.0-36.5); MEAN CORPUSCULAR VOLUME 85.1 fl (80.0-96.0); PLATELET COUNT, AUTOMATED 101 10^3/uL (150-450); RED BLOOD COUNT 3.03 10^6/uL (4.00-5.40); WHITE BLOOD COUNT 9.8 10^3/uL (4.0-10.0)
[2022-07-29 07:27] LABS: ALBUMIN 2.1 G/DL (3.2-5.2); ALKALINE PHOSPHATASE 106 U/L (46-116); ALT/SGPT 39 U/L (7.0-40); AST/SGOT 22 U/L (<34); BILIRUBIN,TOTAL 1.1 MG/DL (0.3-1.2); BLOOD UREA NITROGEN 40 MG/DL (9-23); CALCIUM LEVEL 8.3 MG/DL (8.3-10.6); CARBON DIOXIDE LEVEL 32 MMOL/L (20-31); CHLORIDE LEVEL 104 MMOL/L (98-107); CREATININE FOR GFR 0.88 MG/DL (0.55-1.30); GLOMERULAR FILTRATION RATE > 60.0 (>32); GLUCOSE, FASTING 121 MG/DL (74-106); MAGNESIUM LEVEL 2.1 MG/DL (1.8-2.4); SODIUM LEVEL 141 MMOL/L (136-145); TOTAL PROTEIN 4.9 G/DL (5.7-8.2)
[2022-07-29] MEDS: OMEPRAZOLE 20MG CAP PO SCH (08:23)
[2022-07-29] MEDS: ASPIRIN 81MG ENTERIC TABLET PO SCH ×2 (08:23→20:45)
[2022-07-29] MEDS: FERROUS GLUCONATE 324 MG TAB PO SCH (08:23)
[2022-07-29] MEDS: FUROSEMIDE 40MG/4ML VIAL IV SCH ×2 (08:28→17:51)
[2022-07-29] MEDS ORDERED: SENOKOT S TAB PO PRN (08:50)
[2022-07-29] MEDS: PRAVASTATIN 20 MG TAB PO SCH (20:45)
[2022-07-30] MEDS: LEVOTHYROXINE 112MCG TABLET (0.112MG) PO SCH (05:34)
[2022-07-30] MEDS: HEPARIN SOD (PORCINE) 5000UNITS/ML 1ML VIAL/SYRINGE SC SCH ×3 (05:35→20:59)
[2022-07-30 06:00] VITALS: BP 111/59
[2022-07-30 06:40] LABS: BASO % 0.1 % (0.0-1.0); EOS # 0.1 10^3/uL (0.0-0.5); EOS % 0.9 % (0.0-3.0); HEMATOCRIT 29.4 % (36.0-47.0); HEMOGLOBIN 8.8 g/dl (12.0-15.5); LYMPH # 0.3 10^3/uL (1.5-5.0); LYMPH % 2.7 % (24.0-44.0); MEAN CORPUSCULAR HEMOGLOBIN 25.5 pg (27.0-33.0); MEAN CORPUSCULAR HGB CONC 29.9 g/dl (32.0-36.5); MEAN CORPUSCULAR VOLUME 85.2 fl (80.0-96.0); MONO # 0.6 10^3/uL (0.0-0.8); MONO % 4.6 % (2.0-8.0); NEUTROPHILS # 11.4 10^3/uL (1.5-8.5); PLATELET COUNT, AUTOMATED 141 10^3/uL (150-450); RED BLOOD COUNT 3.45 10^6/uL (4.00-5.40); WHITE BLOOD COUNT 12.5 10^3/uL (4.0-10.0)
[2022-07-30 07:10] LABS: ALBUMIN 2.1 G/DL (3.2-5.2); ALKALINE PHOSPHATASE 119 U/L (46-116); ALT/SGPT 41 U/L (7.0-40); AST/SGOT 21 U/L (<34); BLOOD UREA NITROGEN 43 MG/DL (9-23); CALCIUM LEVEL 8.4 MG/DL (8.3-10.6); CARBON DIOXIDE LEVEL 31 MMOL/L (20-31); CHLORIDE LEVEL 103 MMOL/L (98-107); GLOMERULAR FILTRATION RATE > 60.0 (>32); GLUCOSE, FASTING 132 MG/DL (74-106); MAGNESIUM LEVEL 2.1 MG/DL (1.8-2.4); POTASSIUM SERUM 3.7 MMOL/L (3.5-5.1); SODIUM LEVEL 139 MMOL/L (136-145); TOTAL PROTEIN 5.2 G/DL (5.7-8.2)
[2022-07-30] MEDS: ASPIRIN 81MG ENTERIC TABLET PO SCH ×2 (08:35→20:59)
[2022-07-30] MEDS: OMEPRAZOLE 20MG CAP PO SCH (08:35)
[2022-07-30] MEDS: FERROUS GLUCONATE 324 MG TAB PO SCH (08:36)
[2022-07-30] MEDS: FUROSEMIDE 40MG/4ML VIAL IV SCH ×3 (08:36→21:00)
[2022-07-30 14:00] VITALS: BP 124/73
[2022-07-30] MEDS: ACETAMINOPHEN TAB 650MG DOSE (2X325MG) PO PRN (15:59)
[2022-07-30 20:04] VITALS: BP 104/50
[2022-07-30] MEDS: PRAVASTATIN 20 MG TAB PO SCH (20:59)
[2022-07-31] MEDS: ACETAMINOPHEN TAB 650MG DOSE (2X325MG) PO PRN (00:24)
[2022-07-31 00:40] LABS: APPEARANCE, URINE CLEAR (CLEAR); BACTERIA, URINE AUTO NEGATIVE (NEGATIVE); BILIRUBIN, URINE AUTO NEGATIVE (NEGATIVE); BLOOD, URINE BLOOD NEGATIVE (NEGATIVE); CALCIUM OXALATE CRYSTALS SMALL; COLOR, URINE YELLOW (YELLOW); GLUCOSE, URINE (UA) AUTO NEGATIVE (NEGATIVE); KETONE, URINE AUTO NEGATIVE (NEGATIVE); LEUKOCYTE ESTERASE, URINE AUTO NEGATIVE (NEGATIVE); MUCUS, URINE SMALL (NEGATIVE); NITRITE, URINE AUTO NEGATIVE (NEGATIVE); PROTEIN, URINE AUTO NEGATIVE (NEGATIVE); RBC, URINE AUTO 2 /HPF (0-3); SPECIFIC GRAVITY URINE AUTO 1.015 (1.002-1.035); SQUAMOUS EPITHELIAL CELL UR AU 3 /HPF (0-6); UROBILINOGEN, URINE AUTO 0.2 mg/dL (0.0-2.0); WBC, URINE AUTO 2 /HPF (0-3)
[2022-07-31] MEDS: FUROSEMIDE 40MG/4ML VIAL IV SCH ×3 (05:39→20:39)
[2022-07-31] MEDS: HEPARIN SOD (PORCINE) 5000UNITS/ML 1ML VIAL/SYRINGE SC SCH ×3 (05:39→20:39)
[2022-07-31] MEDS: LEVOTHYROXINE 112MCG TABLET (0.112MG) PO SCH (05:40)
[2022-07-31 05:41] VITALS: BP 104/55
[2022-07-31 06:48] LABS: BASO % 0.1 % (0.0-1.0); EOS # 0.1 10^3/uL (0.0-0.5); EOS % 0.7 % (0.0-3.0); HEMATOCRIT 31.1 % (36.0-47.0); HEMOGLOBIN 9.4 g/dl (12.0-15.5); LYMPH # 0.3 10^3/uL (1.5-5.0); LYMPH % 2.5 % (24.0-44.0); MEAN CORPUSCULAR HEMOGLOBIN 25.6 pg (27.0-33.0); MEAN CORPUSCULAR HGB CONC 30.2 g/dl (32.0-36.5); MEAN CORPUSCULAR VOLUME 84.7 fl (80.0-96.0); MONO # 0.5 10^3/uL (0.0-0.8); NEUTROPHILS # 12.6 10^3/uL (1.5-8.5); NEUTROPHILS % 92.3 % (36.0-66.0); PLATELET COUNT, AUTOMATED 132 10^3/uL (150-450); RED BLOOD COUNT 3.67 10^6/uL (4.00-5.40); WHITE BLOOD COUNT 13.6 10^3/uL (4.0-10.0)
[2022-07-31 07:35] LABS: CALCIUM LEVEL 8.2 MG/DL (8.3-10.6); CREATININE FOR GFR 0.95 MG/DL (0.55-1.30); GLOMERULAR FILTRATION RATE 59.8 (>32); MAGNESIUM LEVEL 2.1 MG/DL (1.8-2.4); POTASSIUM SERUM 3.5 MMOL/L (3.5-5.1); TOTAL PROTEIN 5.3 G/DL (5.7-8.2)
[2022-07-31] MEDS: ASPIRIN 81MG ENTERIC TABLET PO SCH ×2 (09:23→20:38)
[2022-07-31] MEDS: FERROUS GLUCONATE 324 MG TAB PO SCH (09:23)
[2022-07-31] MEDS: OMEPRAZOLE 20MG CAP PO SCH (09:23)
[2022-07-31] MEDS: NYSTATIN 100,000 UNITS/GM TOPICAL PWD 15GM TOP PRN ×2 (09:28→20:39)
[2022-07-31 14:00] VITALS: BP 104/55
[2022-07-31] MEDS: LACTULOSE 20GM/30ML SYRUP UDC PO SCH ×3 (14:34→20:38)
[2022-07-31] MEDS: PRAVASTATIN 20 MG TAB PO SCH (20:38)
[2022-07-31 22:00] VITALS: BP 116/72
[2022-08-01 06:00] VITALS: BP 102/54
[2022-08-01] MEDS: HEPARIN SOD (PORCINE) 5000UNITS/ML 1ML VIAL/SYRINGE SC SCH ×3 (06:07→22:05)
[2022-08-01] MEDS: LEVOTHYROXINE 112MCG TABLET (0.112MG) PO SCH (06:07)
[2022-08-01] MEDS: FUROSEMIDE 40MG/4ML VIAL IV SCH ×3 (06:08→22:05)
[2022-08-01 06:26] LABS: BASO % 0.1 % (0.0-1.0); EOS # 0.1 10^3/uL (0.0-0.5); EOS % 0.7 % (0.0-3.0); HEMATOCRIT 31.4 % (36.0-47.0); HEMOGLOBIN 9.5 g/dl (12.0-15.5); LYMPH # 0.3 10^3/uL (1.5-5.0); LYMPH % 2.2 % (24.0-44.0); MEAN CORPUSCULAR HEMOGLOBIN 25.4 pg (27.0-33.0); MEAN CORPUSCULAR HGB CONC 30.3 g/dl (32.0-36.5); MONO # 0.6 10^3/uL (0.0-0.8); MONO % 4.7 % (2.0-8.0); NEUTROPHILS # 12.5 10^3/uL (1.5-8.5); NEUTROPHILS % 91.5 % (36.0-66.0); PLATELET COUNT, AUTOMATED 140 10^3/uL (150-450); RED BLOOD COUNT 3.74 10^6/uL (4.00-5.40); WHITE BLOOD COUNT 13.6 10^3/uL (4.0-10.0)
[2022-08-01 06:59] LABS: ALBUMIN 1.9 G/DL (3.2-5.2); BILIRUBIN,TOTAL 0.8 MG/DL (0.3-1.2); CALCIUM LEVEL 8.4 MG/DL (8.3-10.6); CREATININE FOR GFR 1.12 MG/DL (0.55-1.30); GLOMERULAR FILTRATION RATE 49.5 (>32); MAGNESIUM LEVEL 2.2 MG/DL (1.8-2.4); POTASSIUM SERUM 3.8 MMOL/L (3.5-5.1); TOTAL PROTEIN 5.3 G/DL (5.7-8.2)
[2022-08-01] MEDS: LACTULOSE 20GM/30ML SYRUP UDC PO SCH ×3 (07:37→18:01)
[2022-08-01] MEDS: OMEPRAZOLE 20MG CAP PO SCH (09:12)
[2022-08-01] MEDS: FERROUS GLUCONATE 324 MG TAB PO SCH (09:12)
[2022-08-01] MEDS: ASPIRIN 81MG ENTERIC TABLET PO SCH ×2 (09:12→22:05)
[2022-08-01] MEDS ORDERED: MIDODRINE 2.5 MG TAB PO SCH (12:00)
[2022-08-01] MEDS ORDERED: MIDODRINE 5 MG TAB PO SCH (12:21)
[2022-08-01] MEDS: POTASSIUM CHLORIDE 10MEQ SR TABLET PO SCH ×2 (13:04→16:29)
[2022-08-01] MEDS: MIDODRINE 5 MG TAB PO SCH ×2 (13:04→16:29)
[2022-08-01 22:00] VITALS: BP 127/63
[2022-08-01] MEDS: PRAVASTATIN 20 MG TAB PO SCH (22:04)
[2022-08-02] VITALS (10 sets, daily range): BP systolic 100–126; BP diastolic 57–69
[2022-08-02] MEDS: LACTULOSE 20GM/30ML SYRUP UDC PO SCH ×4 (01:05→22:00)
[2022-08-02 05:42] LABS: BASO % 0.1 % (0.0-1.0); EOS % 0.2 % (0.0-3.0); HEMATOCRIT 30.1 % (36.0-47.0); HEMOGLOBIN 9.2 g/dl (12.0-15.5); LYMPH # 0.3 10^3/uL (1.5-5.0); LYMPH % 2.6 % (24.0-44.0); MEAN CORPUSCULAR HEMOGLOBIN 25.3 pg (27.0-33.0); MEAN CORPUSCULAR HGB CONC 30.6 g/dl (32.0-36.5); MEAN CORPUSCULAR VOLUME 82.9 fl (80.0-96.0); MONO # 0.7 10^3/uL (0.0-0.8); MONO % 5.3 % (2.0-8.0); NEUTROPHILS # 11.2 10^3/uL (1.5-8.5); NEUTROPHILS % 91.1 % (36.0-66.0); PLATELET COUNT, AUTOMATED 142 10^3/uL (150-450); RED BLOOD COUNT 3.63 10^6/uL (4.00-5.40); WHITE BLOOD COUNT 12.3 10^3/uL (4.0-10.0)
[2022-08-02 06:16] LABS: ALBUMIN 1.8 G/DL (3.2-5.2); BILIRUBIN,TOTAL 0.9 MG/DL (0.3-1.2); CALCIUM LEVEL 8.3 MG/DL (8.3-10.6); CREATININE FOR GFR 1.02 MG/DL (0.55-1.30); GLOMERULAR FILTRATION RATE 55.1 (>32); MAGNESIUM LEVEL 2.1 MG/DL (1.8-2.4); POTASSIUM SERUM 4.6 MMOL/L (3.5-5.1); TOTAL PROTEIN 5.2 G/DL (5.7-8.2)
[2022-08-02] MEDS: FUROSEMIDE 40MG/4ML VIAL IV SCH ×3 (06:26→22:01)
[2022-08-02] MEDS: LEVOTHYROXINE 112MCG TABLET (0.112MG) PO SCH (06:26)
[2022-08-02] MEDS: HEPARIN SOD (PORCINE) 5000UNITS/ML 1ML VIAL/SYRINGE SC SCH ×3 (06:27→22:00)
[2022-08-02] MEDS ORDERED: LACTULOSE 20GM/30ML SYRUP UDC PO ONE (07:30)
[2022-08-02] MEDS: MIDODRINE 5 MG TAB PO SCH ×3 (08:57→15:00)
[2022-08-02] MEDS: ASPIRIN 81MG ENTERIC TABLET PO SCH ×2 (10:13→21:59)
[2022-08-02] MEDS: OMEPRAZOLE 20MG CAP PO SCH (10:14)
[2022-08-02] MEDS: FERROUS GLUCONATE 324 MG TAB PO SCH (10:14)
[2022-08-02] MEDS: PRAVASTATIN 20 MG TAB PO SCH (22:00)
[2022-08-02] MEDS: NYSTATIN 100,000 UNITS/GM TOPICAL PWD 15GM TOP PRN (22:27)
[2022-08-03] VITALS (13 sets, daily range): BP systolic 101–117; BP diastolic 46–55
[2022-08-03] MEDS: LEVOTHYROXINE 112MCG TABLET (0.112MG) PO SCH (06:38)
[2022-08-03] MEDS: HEPARIN SOD (PORCINE) 5000UNITS/ML 1ML VIAL/SYRINGE SC SCH ×3 (06:38→21:20)
[2022-08-03] MEDS: LACTULOSE 20GM/30ML SYRUP UDC PO SCH ×3 (06:38→18:05)
[2022-08-03] MEDS: FUROSEMIDE 40MG/4ML VIAL IV SCH ×3 (06:55→21:19)
[2022-08-03 07:03] LABS: HEMATOCRIT 23.1 % (36.0-47.0); LYMPH # 0.3 10^3/uL (1.5-5.0); MEAN CORPUSCULAR HEMOGLOBIN 25.5 pg (27.0-33.0); MEAN CORPUSCULAR HGB CONC 30.3 g/dl (32.0-36.5); MONO # 0.4 10^3/uL (0.0-0.8); MONO % 5.7 % (2.0-8.0); NEUTROPHILS % 89.7 % (36.0-66.0); RED BLOOD COUNT 2.75 10^6/uL (4.00-5.40); WHITE BLOOD COUNT 6.7 10^3/uL (4.0-10.0)
[2022-08-03 07:37] LABS: ALBUMIN 2.9 G/DL (3.2-5.2); ALKALINE PHOSPHATASE 127 U/L (46-116); ALT/SGPT 52 U/L (7.0-40); AST/SGOT 34 U/L (<34); BILIRUBIN,TOTAL 1.1 MG/DL (0.3-1.2); BLOOD UREA NITROGEN 47 MG/DL (9-23); CALCIUM LEVEL 8.7 MG/DL (8.3-10.6); CARBON DIOXIDE LEVEL 29 MMOL/L (20-31); CHLORIDE LEVEL 103 MMOL/L (98-107); CREATININE FOR GFR 0.94 MG/DL (0.55-1.30); GLOMERULAR FILTRATION RATE > 60.0 (>32); GLUCOSE, FASTING 140 MG/DL (74-106); MAGNESIUM LEVEL 2.2 MG/DL (1.8-2.4); POTASSIUM SERUM 4.3 MMOL/L (3.5-5.1); SODIUM LEVEL 140 MMOL/L (136-145); TOTAL PROTEIN 5.2 G/DL (5.7-8.2)
[2022-08-03 08:44] LABS: PLATELET COUNT, AUTOMATED 92 10^3/uL (150-450)
[2022-08-03] MEDS: ASPIRIN 81MG ENTERIC TABLET PO SCH ×2 (08:48→21:20)
[2022-08-03] MEDS: FERROUS GLUCONATE 324 MG TAB PO SCH (08:48)
[2022-08-03] MEDS: MIDODRINE 5 MG TAB PO SCH ×3 (08:48→14:56)
[2022-08-03] MEDS: OMEPRAZOLE 20MG CAP PO SCH (08:48)
[2022-08-03 13:18] LABS: HEMATOCRIT 24.1 % (36.0-47.0); HEMOGLOBIN 7.4 g/dl (12.0-15.5)
[2022-08-03] MEDS: PRAVASTATIN 20 MG TAB PO SCH (21:20)
[2022-08-04] MEDS: LACTULOSE 20GM/30ML SYRUP UDC PO SCH ×6 (00:50→22:14)
[2022-08-04] MEDS: FUROSEMIDE 40MG/4ML VIAL IV SCH (05:15)
[2022-08-04] MEDS: LEVOTHYROXINE 112MCG TABLET (0.112MG) PO SCH (05:15)
[2022-08-04] MEDS: HEPARIN SOD (PORCINE) 5000UNITS/ML 1ML VIAL/SYRINGE SC SCH ×3 (05:15→22:13)
[2022-08-04 06:00] VITALS: BP 121/56
[2022-08-04 06:47] LABS: BASO % 0.1 % (0.0-1.0); EOS % 0.1 % (0.0-3.0); HEMATOCRIT 24.9 % (36.0-47.0); HEMOGLOBIN 7.5 g/dl (12.0-15.5); LYMPH # 0.3 10^3/uL (1.5-5.0); LYMPH % 3.4 % (24.0-44.0); MEAN CORPUSCULAR HEMOGLOBIN 25.3 pg (27.0-33.0); MEAN CORPUSCULAR HGB CONC 30.1 g/dl (32.0-36.5); MEAN CORPUSCULAR VOLUME 83.8 fl (80.0-96.0); MONO # 0.5 10^3/uL (0.0-0.8); MONO % 6.4 % (2.0-8.0); NEUTROPHILS # 6.6 10^3/uL (1.5-8.5); NEUTROPHILS % 89.1 % (36.0-66.0); RED BLOOD COUNT 2.97 10^6/uL (4.00-5.40); WHITE BLOOD COUNT 7.4 10^3/uL (4.0-10.0)
[2022-08-04 06:51] LABS: PLATELET COUNT, AUTOMATED 97 10^3/uL (150-450)
[2022-08-04 07:15] LABS: ALKALINE PHOSPHATASE 155 U/L (46-116); ALT/SGPT 72 U/L (7.0-40); AST/SGOT 65 U/L (<34); BLOOD UREA NITROGEN 43 MG/DL (9-23); CALCIUM LEVEL 8.9 MG/DL (8.3-10.6); CARBON DIOXIDE LEVEL 30 MMOL/L (20-31); CHLORIDE LEVEL 103 MMOL/L (98-107); CREATININE FOR GFR 0.91 MG/DL (0.55-1.30); GLOMERULAR FILTRATION RATE > 60.0 (>32); GLUCOSE, FASTING 185 MG/DL (74-106); MAGNESIUM LEVEL 2.4 MG/DL (1.8-2.4); POTASSIUM SERUM 3.7 MMOL/L (3.5-5.1); SODIUM LEVEL 141 MMOL/L (136-145); TOTAL PROTEIN 5.3 G/DL (5.7-8.2)
[2022-08-04 07:34] VITALS: BP 110/48
[2022-08-04] MEDS: ASPIRIN 81MG ENTERIC TABLET PO SCH ×2 (08:26→22:14)
[2022-08-04] MEDS: OMEPRAZOLE 20MG CAP PO SCH (08:28)
[2022-08-04] MEDS: MIDODRINE 5 MG TAB PO SCH ×3 (08:28→16:16)
[2022-08-04] MEDS: FERROUS GLUCONATE 324 MG TAB PO SCH (08:28)
[2022-08-04] MEDS: rifAXIMin 550 MG TAB (XIFAXAN) PO SCH ×2 (10:26→22:14)
[2022-08-04 14:00] VITALS: BP 112/49
[2022-08-04] MEDS: FUROSEMIDE 80 MG TAB PO SCH (16:15)
[2022-08-04 19:31] VITALS: BP 122/55
[2022-08-04] MEDS: PRAVASTATIN 20 MG TAB PO SCH (22:14)
[2022-08-05] MEDS: LACTULOSE 20GM/30ML SYRUP UDC PO SCH ×6 (01:06→20:14)
[2022-08-05] MEDS: HEPARIN SOD (PORCINE) 5000UNITS/ML 1ML VIAL/SYRINGE SC SCH ×3 (05:05→22:04)
[2022-08-05] MEDS: LEVOTHYROXINE 112MCG TABLET (0.112MG) PO SCH (05:24)
[2022-08-05] MEDS: ACETAMINOPHEN TAB 650MG DOSE (2X325MG) PO PRN (05:24)
[2022-08-05 05:49] VITALS: BP 124/58
[2022-08-05 06:00] LABS: BASO % 0.1 % (0.0-1.0); EOS % 0.4 % (0.0-3.0); HEMATOCRIT 27.8 % (36.0-47.0); HEMOGLOBIN 8.5 g/dl (12.0-15.5); LYMPH # 0.4 10^3/uL (1.5-5.0); LYMPH % 3.4 % (24.0-44.0); MEAN CORPUSCULAR HEMOGLOBIN 25.5 pg (27.0-33.0); MEAN CORPUSCULAR HGB CONC 30.6 g/dl (32.0-36.5); MEAN CORPUSCULAR VOLUME 83.5 fl (80.0-96.0); MONO # 0.7 10^3/uL (0.0-0.8); MONO % 6.8 % (2.0-8.0); NEUTROPHILS # 9.5 10^3/uL (1.5-8.5); NEUTROPHILS % 88.6 % (36.0-66.0); PLATELET COUNT, AUTOMATED 116 10^3/uL (150-450); RED BLOOD COUNT 3.33 10^6/uL (4.00-5.40); WHITE BLOOD COUNT 10.7 10^3/uL (4.0-10.0)
[2022-08-05 06:30] LABS: ALBUMIN 2.9 G/DL (3.2-5.2); BILIRUBIN,TOTAL 1.2 MG/DL (0.3-1.2); CALCIUM LEVEL 9.2 MG/DL (8.3-10.6); CREATININE FOR GFR 0.96 MG/DL (0.55-1.30); GLOMERULAR FILTRATION RATE 59.1 (>32); MAGNESIUM LEVEL 2.3 MG/DL (1.8-2.4); POTASSIUM SERUM 3.9 MMOL/L (3.5-5.1); TOTAL PROTEIN 5.5 G/DL (5.7-8.2)
[2022-08-05] MEDS: ASPIRIN 81MG ENTERIC TABLET PO SCH ×2 (09:05→20:13)
[2022-08-05] MEDS: MIDODRINE 5 MG TAB PO SCH ×3 (09:05→17:17)
[2022-08-05] MEDS: rifAXIMin 550 MG TAB (XIFAXAN) PO SCH ×2 (09:06→20:14)
[2022-08-05] MEDS: OMEPRAZOLE 20MG CAP PO SCH (09:07)
[2022-08-05] MEDS: FERROUS GLUCONATE 324 MG TAB PO SCH (09:07)
[2022-08-05] MEDS: FUROSEMIDE 80 MG TAB PO SCH ×2 (09:09→17:16)
[2022-08-05] MEDS: SPIRONOLACTONE 25 MG TAB PO SCH (12:48)
[2022-08-05 14:57] VITALS: BP 121/61
[2022-08-05] MEDS: PRAVASTATIN 20 MG TAB PO SCH (20:13)
[2022-08-05 22:00] VITALS: BP 126/57
[2022-08-06] MEDS: LACTULOSE 20GM/30ML SYRUP UDC PO SCH ×4 (01:00→13:32)
[2022-08-06 06:16] VITALS: BP 123/58
[2022-08-06] MEDS: HEPARIN SOD (PORCINE) 5000UNITS/ML 1ML VIAL/SYRINGE SC SCH ×3 (06:22→20:27)
[2022-08-06] MEDS: LEVOTHYROXINE 112MCG TABLET (0.112MG) PO SCH (06:22)
[2022-08-06 07:06] LABS: BASO % 0.1 % (0.0-1.0); EOS % 0.3 % (0.0-3.0); HEMATOCRIT 27.3 % (36.0-47.0); HEMOGLOBIN 8.3 g/dl (12.0-15.5); LYMPH # 0.3 10^3/uL (1.5-5.0); LYMPH % 3.1 % (24.0-44.0); MEAN CORPUSCULAR HEMOGLOBIN 25.9 pg (27.0-33.0); MEAN CORPUSCULAR HGB CONC 30.4 g/dl (32.0-36.5); MONO # 0.4 10^3/uL (0.0-0.8); MONO % 4.2 % (2.0-8.0); NEUTROPHILS # 8.7 10^3/uL (1.5-8.5); NEUTROPHILS % 91.8 % (36.0-66.0); PLATELET COUNT, AUTOMATED 93 10^3/uL (150-450); RED BLOOD COUNT 3.21 10^6/uL (4.00-5.40); WHITE BLOOD COUNT 9.4 10^3/uL (4.0-10.0)
[2022-08-06 08:00] LABS: ALBUMIN 2.5 G/DL (3.2-5.2); BILIRUBIN,TOTAL 1.2 MG/DL (0.3-1.2); CALCIUM LEVEL 8.8 MG/DL (8.3-10.6); CREATININE FOR GFR 0.98 MG/DL (0.55-1.30); GLOMERULAR FILTRATION RATE 57.7 (>32); POTASSIUM SERUM 3.8 MMOL/L (3.5-5.1)
[2022-08-06] MEDS: SPIRONOLACTONE 25 MG TAB PO SCH (08:16)
[2022-08-06] MEDS: rifAXIMin 550 MG TAB (XIFAXAN) PO SCH ×2 (08:16→20:26)
[2022-08-06] MEDS: ASPIRIN 81MG ENTERIC TABLET PO SCH ×2 (08:17→20:26)
[2022-08-06] MEDS: OMEPRAZOLE 20MG CAP PO SCH (08:17)
[2022-08-06] MEDS: MIDODRINE 5 MG TAB PO SCH ×3 (08:17→16:52)
[2022-08-06] MEDS: FERROUS GLUCONATE 324 MG TAB PO SCH (08:17)
[2022-08-06] MEDS: FUROSEMIDE 80 MG TAB PO SCH (08:17)
[2022-08-06] MEDS ORDERED: ISOVUE-370 76% 100ML VIAL As Ordered ONE (12:35)
[2022-08-06 14:00] VITALS: BP 118/60
[2022-08-06] MEDS: FUROSEMIDE 40 MG TAB PO SCH (17:05)
[2022-08-06] MEDS: PRAVASTATIN 20 MG TAB PO SCH (20:27)
[2022-08-06 22:00] VITALS: BP 127/70
[2022-08-07 05:20] VITALS: BP 114/57
[2022-08-07] MEDS: HEPARIN SOD (PORCINE) 5000UNITS/ML 1ML VIAL/SYRINGE SC SCH ×3 (06:00→21:53)
[2022-08-07 06:23] LABS: BASO % 0.2 % (0.0-1.0); EOS % 0.4 % (0.0-3.0); HEMATOCRIT 28.1 % (36.0-47.0); HEMOGLOBIN 8.5 g/dl (12.0-15.5); LYMPH # 0.3 10^3/uL (1.5-5.0); LYMPH % 2.4 % (24.0-44.0); MEAN CORPUSCULAR HEMOGLOBIN 25.4 pg (27.0-33.0); MEAN CORPUSCULAR HGB CONC 30.2 g/dl (32.0-36.5); MEAN CORPUSCULAR VOLUME 84.1 fl (80.0-96.0); MONO # 0.5 10^3/uL (0.0-0.8); MONO % 4.5 % (2.0-8.0); NEUTROPHILS # 10.3 10^3/uL (1.5-8.5); NEUTROPHILS % 92.1 % (36.0-66.0); PLATELET COUNT, AUTOMATED 101 10^3/uL (150-450); RED BLOOD COUNT 3.34 10^6/uL (4.00-5.40); WHITE BLOOD COUNT 11.2 10^3/uL (4.0-10.0)
[2022-08-07] MEDS: LEVOTHYROXINE 112MCG TABLET (0.112MG) PO SCH (06:28)
[2022-08-07 06:48] LABS: ALBUMIN 2.5 G/DL (3.2-5.2); ALKALINE PHOSPHATASE 216 U/L (46-116); ALT/SGPT 119 U/L (7.0-40); AST/SGOT 51 U/L (<34); BILIRUBIN,TOTAL 1.2 MG/DL (0.3-1.2); BLOOD UREA NITROGEN 38 MG/DL (9-23); CALCIUM LEVEL 8.8 MG/DL (8.3-10.6); CARBON DIOXIDE LEVEL 30 MMOL/L (20-31); CHLORIDE LEVEL 103 MMOL/L (98-107); CREATININE FOR GFR 0.91 MG/DL (0.55-1.30); GLOMERULAR FILTRATION RATE > 60.0 (>32); GLUCOSE, FASTING 166 MG/DL (74-106); POTASSIUM SERUM 3.9 MMOL/L (3.5-5.1); SODIUM LEVEL 139 MMOL/L (136-145); TOTAL PROTEIN 5.1 G/DL (5.7-8.2)
[2022-08-07] MEDS ORDERED: SENNA 8.6 MG TAB (SENOKOT) PO PRN (07:20)
[2022-08-07] MEDS: MIRALAX *UNIT DOSE* 17GM PACKET PO SCH ×2 (08:57→21:53)
[2022-08-07] MEDS: FERROUS GLUCONATE 324 MG TAB PO SCH (08:59)
[2022-08-07] MEDS: MIDODRINE 5 MG TAB PO SCH ×3 (09:02→16:58)
[2022-08-07] MEDS: OMEPRAZOLE 20MG CAP PO SCH (09:02)
[2022-08-07] MEDS: rifAXIMin 550 MG TAB (XIFAXAN) PO SCH ×2 (09:02→21:53)
[2022-08-07] MEDS: FUROSEMIDE 40 MG TAB PO SCH ×2 (09:02→16:58)
[2022-08-07] MEDS: SPIRONOLACTONE 25 MG TAB PO SCH (09:03)
[2022-08-07] MEDS: ASPIRIN 81MG ENTERIC TABLET PO SCH ×2 (09:03→21:53)
[2022-08-07] MEDS: SENOKOT S TAB PO SCH ×2 (09:03→21:53)
[2022-08-07 21:05] VITALS: BP 120/58
[2022-08-07] MEDS: PRAVASTATIN 20 MG TAB PO SCH (21:53)
[2022-08-07] MEDS: NYSTATIN 100,000 UNITS/GM TOPICAL PWD 15GM TOP PRN (21:58)
[2022-08-08 06:00] VITALS: BP 120/57
[2022-08-08 06:03] LABS: BASO % 0.1 % (0.0-1.0); EOS % 0.2 % (0.0-3.0); HEMATOCRIT 27.2 % (36.0-47.0); HEMOGLOBIN 8.2 g/dl (12.0-15.5); LYMPH # 0.2 10^3/uL (1.5-5.0); LYMPH % 2.1 % (24.0-44.0); MEAN CORPUSCULAR HEMOGLOBIN 25.3 pg (27.0-33.0); MEAN CORPUSCULAR HGB CONC 30.1 g/dl (32.0-36.5); MONO # 0.5 10^3/uL (0.0-0.8); MONO % 4.6 % (2.0-8.0); NEUTROPHILS # 10.2 10^3/uL (1.5-8.5); NEUTROPHILS % 92.3 % (36.0-66.0); PLATELET COUNT, AUTOMATED 107 10^3/uL (150-450); RED BLOOD COUNT 3.24 10^6/uL (4.00-5.40); WHITE BLOOD COUNT 11.1 10^3/uL (4.0-10.0)
[2022-08-08] MEDS: LEVOTHYROXINE 112MCG TABLET (0.112MG) PO SCH (06:28)
[2022-08-08 06:30] LABS: ALBUMIN 2.3 G/DL (3.2-5.2); ALKALINE PHOSPHATASE 195 U/L (46-116); ALT/SGPT 92 U/L (7.0-40); AST/SGOT 30 U/L (<34); BILIRUBIN,TOTAL 1.2 MG/DL (0.3-1.2); BLOOD UREA NITROGEN 39 MG/DL (9-23); CALCIUM LEVEL 8.7 MG/DL (8.3-10.6); CARBON DIOXIDE LEVEL 31 MMOL/L (20-31); CHLORIDE LEVEL 101 MMOL/L (98-107); CREATININE FOR GFR 0.93 MG/DL (0.55-1.30); GLOMERULAR FILTRATION RATE > 60.0 (>32); GLUCOSE, FASTING 189 MG/DL (74-106); POTASSIUM SERUM 4.1 MMOL/L (3.5-5.1); SODIUM LEVEL 138 MMOL/L (136-145); TOTAL PROTEIN 4.9 G/DL (5.7-8.2)
[2022-08-08] MEDS: HEPARIN SOD (PORCINE) 5000UNITS/ML 1ML VIAL/SYRINGE SC SCH ×3 (06:31→22:04)
[2022-08-08] MEDS: MIRALAX *UNIT DOSE* 17GM PACKET PO SCH ×2 (08:15→22:00)
[2022-08-08] MEDS: FERROUS GLUCONATE 324 MG TAB PO SCH (08:15)
[2022-08-08] MEDS: LACTULOSE 20GM/30ML SYRUP UDC PO SCH ×3 (08:15→22:00)
[2022-08-08] MEDS: rifAXIMin 550 MG TAB (XIFAXAN) PO SCH ×2 (08:16→22:00)
[2022-08-08] MEDS: SPIRONOLACTONE 25 MG TAB PO SCH (08:16)
[2022-08-08] MEDS: SENOKOT S TAB PO SCH ×2 (08:16→22:00)
[2022-08-08] MEDS: OMEPRAZOLE 20MG CAP PO SCH (08:16)
[2022-08-08] MEDS: MIDODRINE 5 MG TAB PO SCH ×3 (08:16→16:39)
[2022-08-08] MEDS: FUROSEMIDE 40 MG TAB PO SCH ×2 (08:16→16:39)
[2022-08-08] MEDS: ASPIRIN 81MG ENTERIC TABLET PO SCH ×2 (08:16→22:00)
[2022-08-08 14:00] VITALS: BP 109/56
[2022-08-08 22:00] VITALS: BP 123/65
[2022-08-08] MEDS: PRAVASTATIN 20 MG TAB PO SCH (22:00)
[2022-08-09 05:23] VITALS: BP 111/59
[2022-08-09] MEDS: LEVOTHYROXINE 112MCG TABLET (0.112MG) PO SCH (05:46)
[2022-08-09] MEDS: LACTULOSE 20GM/30ML SYRUP UDC PO SCH ×3 (05:46→21:19)
[2022-08-09] MEDS: HEPARIN SOD (PORCINE) 5000UNITS/ML 1ML VIAL/SYRINGE SC SCH ×3 (05:47→21:19)
[2022-08-09 06:32] LABS: BASO % 0.1 % (0.0-1.0); EOS % 0.2 % (0.0-3.0); HEMATOCRIT 29.4 % (36.0-47.0); HEMOGLOBIN 8.8 g/dl (12.0-15.5); LYMPH # 0.3 10^3/uL (1.5-5.0); LYMPH % 2.4 % (24.0-44.0); MEAN CORPUSCULAR HEMOGLOBIN 25.3 pg (27.0-33.0); MEAN CORPUSCULAR HGB CONC 29.9 g/dl (32.0-36.5); MEAN CORPUSCULAR VOLUME 84.5 fl (80.0-96.0); MONO # 0.6 10^3/uL (0.0-0.8); NEUTROPHILS # 11.6 10^3/uL (1.5-8.5); NEUTROPHILS % 91.5 % (36.0-66.0); PLATELET COUNT, AUTOMATED 123 10^3/uL (150-450); RED BLOOD COUNT 3.48 10^6/uL (4.00-5.40); WHITE BLOOD COUNT 12.6 10^3/uL (4.0-10.0)
[2022-08-09 06:58] LABS: ALBUMIN 2.4 G/DL (3.2-5.2); BILIRUBIN,TOTAL 1.2 MG/DL (0.3-1.2); CALCIUM LEVEL 9.1 MG/DL (8.3-10.6); CREATININE FOR GFR 0.96 MG/DL (0.55-1.30); GLOMERULAR FILTRATION RATE 59.1 (>32); POTASSIUM SERUM 4.1 MMOL/L (3.5-5.1); TOTAL PROTEIN 5.3 G/DL (5.7-8.2)
[2022-08-09 07:23] VITALS: BP 122/70
[2022-08-09] MEDS: MIDODRINE 5 MG TAB PO SCH ×3 (08:43→15:44)
[2022-08-09] MEDS: FUROSEMIDE 40 MG TAB PO SCH (08:43)
[2022-08-09] MEDS: OMEPRAZOLE 20MG CAP PO SCH (08:44)
[2022-08-09] MEDS: SENOKOT S TAB PO SCH ×2 (08:44→21:19)
[2022-08-09] MEDS: rifAXIMin 550 MG TAB (XIFAXAN) PO SCH ×2 (08:44→21:20)
[2022-08-09] MEDS: ASPIRIN 81MG ENTERIC TABLET PO SCH ×2 (08:44→21:20)
[2022-08-09] MEDS: SPIRONOLACTONE 25 MG TAB PO SCH (08:44)
[2022-08-09] MEDS: FERROUS GLUCONATE 324 MG TAB PO SCH (08:47)
[2022-08-09] MEDS: MIRALAX *UNIT DOSE* 17GM PACKET PO SCH ×2 (08:49→21:20)
[2022-08-09] MEDS ORDERED: FLEET ENEMA PR PRN (11:45)
[2022-08-09 14:00] VITALS: BP 111/59
[2022-08-09 15:15] LABS: SOURCE, BODY FLUID ASCITES
[2022-08-09 15:16] LABS: APPEARANCE, BODY FLUID HAZY (CLEAR); ASCITES FL COLOR PALE YELLOW (COLORLESS)
[2022-08-09] MEDS: FLEET OIL RETENTION ENEMA PR SCH (15:44)
[2022-08-09 15:52] LABS: SOURCE, BODY FLUID ALBUMIN ASCITES
[2022-08-09 15:57] LABS: SOURCE, BODY FLUID GLUCOSE ASCITES
[2022-08-09 15:59] LABS: SOURCE, BODY FLUID TOT PROTEIN ASCITES; TOTAL PROTEIN, BODY FLUID < 2.0 G/DL (NOT ESTABLISHED)
[2022-08-09] MEDS: FUROSEMIDE 80 MG TAB PO SCH (16:55)
[2022-08-09 19:38] VITALS: BP 112/60
[2022-08-09] MEDS: PRAVASTATIN 20 MG TAB PO SCH (21:20)
[2022-08-10] MEDS: LACTULOSE 20GM/30ML SYRUP UDC PO SCH ×4 (02:00→20:07)
[2022-08-10 05:13] VITALS: BP 113/60
[2022-08-10] MEDS: HEPARIN SOD (PORCINE) 5000UNITS/ML 1ML VIAL/SYRINGE SC SCH ×3 (05:54→21:32)
[2022-08-10] MEDS: LEVOTHYROXINE 112MCG TABLET (0.112MG) PO SCH (05:54)
[2022-08-10 06:22] LABS: ALBUMIN 2.3 G/DL (3.2-5.2); BILIRUBIN,TOTAL 1.2 MG/DL (0.3-1.2); CALCIUM LEVEL 8.5 MG/DL (8.3-10.6); CREATININE FOR GFR 1.04 MG/DL (0.55-1.30); GLOMERULAR FILTRATION RATE 53.9 (>32); POTASSIUM SERUM 4.5 MMOL/L (3.5-5.1); TOTAL PROTEIN 5.1 G/DL (5.7-8.2)
[2022-08-10 07:23] LABS: BASO % 0.1 % (0.0-1.0); HEMATOCRIT 28.7 % (36.0-47.0); HEMOGLOBIN 8.8 g/dl (12.0-15.5); LYMPH # 0.2 10^3/uL (1.5-5.0); LYMPH % 1.8 % (24.0-44.0); MEAN CORPUSCULAR HEMOGLOBIN 25.5 pg (27.0-33.0); MEAN CORPUSCULAR HGB CONC 30.7 g/dl (32.0-36.5); MEAN CORPUSCULAR VOLUME 83.2 fl (80.0-96.0); MONO # 0.7 10^3/uL (0.0-0.8); MONO % 5.7 % (2.0-8.0); NEUTROPHILS # 10.9 10^3/uL (1.5-8.5); NEUTROPHILS % 91.7 % (36.0-66.0); RED BLOOD COUNT 3.45 10^6/uL (4.00-5.40); WHITE BLOOD COUNT 11.9 10^3/uL (4.0-10.0)
[2022-08-10 08:11] LABS: PLATELET COUNT, AUTOMATED 87 10^3/uL (150-450)
[2022-08-10] MEDS: MIRALAX *UNIT DOSE* 17GM PACKET PO SCH ×2 (08:35→20:09)
[2022-08-10] MEDS: OMEPRAZOLE 20MG CAP PO SCH (08:35)
[2022-08-10] MEDS: rifAXIMin 550 MG TAB (XIFAXAN) PO SCH ×2 (08:36→20:09)
[2022-08-10] MEDS: FERROUS GLUCONATE 324 MG TAB PO SCH (08:36)
[2022-08-10] MEDS: MIDODRINE 5 MG TAB PO SCH ×3 (08:36→16:12)
[2022-08-10] MEDS: SENOKOT S TAB PO SCH ×2 (08:36→20:07)
[2022-08-10] MEDS: ASPIRIN 81MG ENTERIC TABLET PO SCH ×2 (08:36→20:07)
[2022-08-10] MEDS: FUROSEMIDE 80 MG TAB PO SCH ×3 (08:39→19:06)
[2022-08-10 09:00] VITALS: BP 103/62
[2022-08-10] MEDS ORDERED: SPIRONOLACTONE 50 MG TAB PO SCH (09:00)
[2022-08-10] MEDS: FLEET OIL RETENTION ENEMA PR SCH (11:45)
[2022-08-10 14:00] VITALS: BP 113/62
[2022-08-10 17:00] VITALS: BP 109/66
[2022-08-10] MEDS: SPIRONOLACTONE 50 MG TAB PO SCH (20:08)
[2022-08-10] MEDS: PRAVASTATIN 20 MG TAB PO SCH (20:08)
[2022-08-10 22:00] VITALS: BP 121/61
[2022-08-11] MEDS: LACTULOSE 20GM/30ML SYRUP UDC PO SCH ×4 (01:13→20:00)
[2022-08-11] MEDS: HEPARIN SOD (PORCINE) 5000UNITS/ML 1ML VIAL/SYRINGE SC SCH ×3 (04:37→21:02)
[2022-08-11] MEDS: LEVOTHYROXINE 112MCG TABLET (0.112MG) PO SCH (05:28)
[2022-08-11 06:00] VITALS: BP 118/60
[2022-08-11 06:07] LABS: BASO % 0.1 % (0.0-1.0); HEMATOCRIT 28.7 % (36.0-47.0); HEMOGLOBIN 8.8 g/dl (12.0-15.5); LYMPH # 0.4 10^3/uL (1.5-5.0); LYMPH % 2.7 % (24.0-44.0); MEAN CORPUSCULAR HEMOGLOBIN 25.3 pg (27.0-33.0); MEAN CORPUSCULAR HGB CONC 30.7 g/dl (32.0-36.5); MEAN CORPUSCULAR VOLUME 82.5 fl (80.0-96.0); MONO # 0.9 10^3/uL (0.0-0.8); MONO % 6.3 % (2.0-8.0); NEUTROPHILS # 12.5 10^3/uL (1.5-8.5); NEUTROPHILS % 89.8 % (36.0-66.0); PLATELET COUNT, AUTOMATED 148 10^3/uL (150-450); RED BLOOD COUNT 3.48 10^6/uL (4.00-5.40); WHITE BLOOD COUNT 13.9 10^3/uL (4.0-10.0)
[2022-08-11 06:39] LABS: ALBUMIN 2.2 G/DL (3.2-5.2); BILIRUBIN,TOTAL 1.3 MG/DL (0.3-1.2); CALCIUM LEVEL 8.9 MG/DL (8.3-10.6); CREATININE FOR GFR 1.09 MG/DL (0.55-1.30); POTASSIUM SERUM 4.7 MMOL/L (3.5-5.1); TOTAL PROTEIN 5.2 G/DL (5.7-8.2)
[2022-08-11 07:48] LABS: INR 1.12; PROTHROMBIN TIME 14.6 SECONDS (12.5-14.5)
[2022-08-11] MEDS: MIRALAX *UNIT DOSE* 17GM PACKET PO SCH ×2 (08:02→20:00)
[2022-08-11] MEDS: METAMUCIL (PSYLLIUM) PACKET PO SCH ×2 (08:02→20:00)
[2022-08-11] MEDS: SPIRONOLACTONE 50 MG TAB PO SCH ×2 (08:03→20:10)
[2022-08-11] MEDS: ASPIRIN 81MG ENTERIC TABLET PO SCH ×2 (08:03→20:09)
[2022-08-11] MEDS: OMEPRAZOLE 20MG CAP PO SCH (08:03)
[2022-08-11] MEDS: MIDODRINE 5 MG TAB PO SCH ×3 (08:03→16:24)
[2022-08-11] MEDS: SENOKOT S TAB PO SCH (08:03)
[2022-08-11] MEDS: FERROUS GLUCONATE 324 MG TAB PO SCH (08:03)
[2022-08-11] MEDS: rifAXIMin 550 MG TAB (XIFAXAN) PO SCH ×2 (08:03→20:09)
[2022-08-11] MEDS: FUROSEMIDE 80 MG TAB PO SCH ×2 (08:04→16:24)
[2022-08-11 08:54] VITALS: BP 104/66
[2022-08-11] MEDS ORDERED: SENNA 8.6 MG TAB (SENOKOT) PO SCH (09:00)
[2022-08-11] MEDS: FLEET OIL RETENTION ENEMA PR SCH ×2 (09:00→20:00)
[2022-08-11 12:15] LABS: FERRITIN 33.1 NG/ML (7.3-270.7)
[2022-08-11 12:16] LABS: FOLATE 15.03 NG/ML (>5.4)
[2022-08-11 12:22] LABS: PERCENT SATURATION 9.4 % (13.2-45.0)
[2022-08-11 14:00] VITALS: BP 103/56
[2022-08-11] MEDS ORDERED: FERRIC CARBOXYMALTOSE INJ 750 MG in NS 250 ML IV ONE (16:00)
[2022-08-11] MEDS ORDERED: DOCUSATE SODIUM 100MG CAPSULE PO PRN (16:20)
[2022-08-11 16:33] VITALS: BP 101/54
[2022-08-11] MEDS: PRAVASTATIN 20 MG TAB PO SCH (20:09)
[2022-08-11 20:12] VITALS: BP 96/50
[2022-08-11] MEDS ORDERED: SENOKOT S TAB PO SCH (21:00)
[2022-08-11 21:26] VITALS: BP 90/52
[2022-08-12] MEDS: LACTULOSE 20GM/30ML SYRUP UDC PO SCH ×5 (01:15→21:01)
[2022-08-12] MEDS: LEVOTHYROXINE 112MCG TABLET (0.112MG) PO SCH (05:31)
[2022-08-12] MEDS: HEPARIN SOD (PORCINE) 5000UNITS/ML 1ML VIAL/SYRINGE SC SCH ×3 (05:31→21:01)
[2022-08-12 06:09] VITALS: BP 108/56
[2022-08-12 06:18] LABS: BASO % 0.1 % (0.0-1.0); EOS % 0.1 % (0.0-3.0); HEMATOCRIT 29.7 % (36.0-47.0); HEMOGLOBIN 9.3 g/dl (12.0-15.5); LYMPH # 0.3 10^3/uL (1.5-5.0); MEAN CORPUSCULAR HEMOGLOBIN 25.9 pg (27.0-33.0); MEAN CORPUSCULAR HGB CONC 31.3 g/dl (32.0-36.5); MEAN CORPUSCULAR VOLUME 82.7 fl (80.0-96.0); MONO # 1.1 10^3/uL (0.0-0.8); MONO % 6.6 % (2.0-8.0); NEUTROPHILS # 14.8 10^3/uL (1.5-8.5); NEUTROPHILS % 90.2 % (36.0-66.0); PLATELET COUNT, AUTOMATED 153 10^3/uL (150-450); RED BLOOD COUNT 3.59 10^6/uL (4.00-5.40); WHITE BLOOD COUNT 16.4 10^3/uL (4.0-10.0)
[2022-08-12 06:56] LABS: ALBUMIN 2.2 G/DL (3.2-5.2); BILIRUBIN,TOTAL 1.1 MG/DL (0.3-1.2); CALCIUM LEVEL 9.1 MG/DL (8.3-10.6); CREATININE FOR GFR 1.1 MG/DL (0.55-1.30); GLOMERULAR FILTRATION RATE 50.5 (>32); POTASSIUM SERUM 4.4 MMOL/L (3.5-5.1); TOTAL PROTEIN 5.2 G/DL (5.7-8.2)
[2022-08-12] MEDS: FLEET OIL RETENTION ENEMA PR SCH ×2 (07:55→21:00)
[2022-08-12] MEDS: ASPIRIN 81MG ENTERIC TABLET PO SCH ×2 (08:25→21:00)
[2022-08-12] MEDS: SPIRONOLACTONE 50 MG TAB PO SCH (08:25)
[2022-08-12] MEDS: OMEPRAZOLE 20MG CAP PO SCH (08:25)
[2022-08-12] MEDS: MIDODRINE 5 MG TAB PO SCH ×3 (08:25→16:02)
[2022-08-12] MEDS: rifAXIMin 550 MG TAB (XIFAXAN) PO SCH ×2 (08:25→21:00)
[2022-08-12] MEDS: FUROSEMIDE 80 MG TAB PO SCH (08:25)
[2022-08-12] MEDS: MIRALAX *UNIT DOSE* 17GM PACKET PO SCH ×2 (08:25→21:00)
[2022-08-12] MEDS: METAMUCIL (PSYLLIUM) PACKET PO SCH ×2 (08:25→21:01)
[2022-08-12] MEDS ORDERED: cefTRIAXone SOD 1 GM in D5W MINI-BAG PLUS 50 ML IV SCH (14:00)
[2022-08-12 14:25] VITALS: BP 96/46
[2022-08-12 15:14] VITALS: BP 111/52
[2022-08-12] MEDS: D5W/LR 1,000 ML IV SCH (16:02)
[2022-08-12] MEDS: PRAVASTATIN 20 MG TAB PO SCH (21:00)
[2022-08-12] MEDS: PIPERACILLIN/TAZOBACTAM SOD 3.375 GM in D5W MINI-BAG PLUS 50 ML IV SCH (21:01)
[2022-08-12 22:19] VITALS: BP 100/55
[2022-08-13] MEDS: LACTULOSE 20GM/30ML SYRUP UDC PO SCH ×4 (02:00→20:00)
[2022-08-13] MEDS: D5W/LR 1,000 ML IV SCH (05:24)
[2022-08-13] MEDS: PIPERACILLIN/TAZOBACTAM SOD 3.375 GM in D5W MINI-BAG PLUS 50 ML IV SCH ×3 (05:24→20:00)
[2022-08-13] MEDS: HEPARIN SOD (PORCINE) 5000UNITS/ML 1ML VIAL/SYRINGE SC SCH ×3 (05:24→22:00)
[2022-08-13] MEDS: LEVOTHYROXINE 112MCG TABLET (0.112MG) PO SCH (05:25)
[2022-08-13 06:17] VITALS: BP 98/56
[2022-08-13 07:42] LABS: BASO % 0.1 % (0.0-1.0); EOS % 0.1 % (0.0-3.0); HEMATOCRIT 27.5 % (36.0-47.0); HEMOGLOBIN 8.6 g/dl (12.0-15.5); LYMPH # 0.3 10^3/uL (1.5-5.0); LYMPH % 1.9 % (24.0-44.0); MEAN CORPUSCULAR HEMOGLOBIN 26.6 pg (27.0-33.0); MEAN CORPUSCULAR HGB CONC 31.3 g/dl (32.0-36.5); MEAN CORPUSCULAR VOLUME 85.1 fl (80.0-96.0); MONO # 0.7 10^3/uL (0.0-0.8); MONO % 5.3 % (2.0-8.0); NEUTROPHILS # 12.3 10^3/uL (1.5-8.5); NEUTROPHILS % 90.9 % (36.0-66.0); PLATELET COUNT, AUTOMATED 117 10^3/uL (150-450); RED BLOOD COUNT 3.23 10^6/uL (4.00-5.40); WHITE BLOOD COUNT 13.5 10^3/uL (4.0-10.0)
[2022-08-13 08:12] LABS: ALBUMIN 1.9 G/DL (3.2-5.2); BILIRUBIN,TOTAL 1.2 MG/DL (0.3-1.2); CALCIUM LEVEL 8.6 MG/DL (8.3-10.6); CREATININE FOR GFR 1.15 MG/DL (0.55-1.30); POTASSIUM SERUM 4.4 MMOL/L (3.5-5.1); TOTAL PROTEIN 4.8 G/DL (5.7-8.2)
[2022-08-13] MEDS: MIRALAX *UNIT DOSE* 17GM PACKET PO SCH ×2 (09:00→21:00)
[2022-08-13] MEDS: METAMUCIL (PSYLLIUM) PACKET PO SCH ×2 (09:00→21:00)
[2022-08-13] MEDS: FLEET OIL RETENTION ENEMA PR SCH ×2 (09:00→21:00)
[2022-08-13] MEDS: OMEPRAZOLE 20MG CAP PO SCH (10:11)
[2022-08-13] MEDS: MIDODRINE 5 MG TAB PO SCH ×3 (10:13→16:00)
[2022-08-13] MEDS: rifAXIMin 550 MG TAB (XIFAXAN) PO SCH ×2 (10:14→21:00)
[2022-08-13] MEDS: ASPIRIN 81MG ENTERIC TABLET PO SCH ×2 (10:15→21:00)
[2022-08-13 14:36] VITALS: BP 118/54
[2022-08-13] MEDS: PRAVASTATIN 20 MG TAB PO SCH (21:00)
[2022-08-13 22:00] VITALS: BP 117/52
[2022-08-14] MEDS: LACTULOSE 20GM/30ML SYRUP UDC PO SCH ×4 (02:00→20:00)
[2022-08-14] MEDS: PIPERACILLIN/TAZOBACTAM SOD 3.375 GM in D5W MINI-BAG PLUS 50 ML IV SCH ×4 (03:46→23:30)
[2022-08-14] MEDS: LEVOTHYROXINE 112MCG TABLET (0.112MG) PO SCH (05:09)
[2022-08-14] MEDS: HEPARIN SOD (PORCINE) 5000UNITS/ML 1ML VIAL/SYRINGE SC SCH ×3 (05:10→22:00)
[2022-08-14 06:00] VITALS: BP 117/53
[2022-08-14 06:56] LABS: BASO % 0.1 % (0.0-1.0); HEMOGLOBIN 9.2 g/dl (12.0-15.5); LYMPH # 0.4 10^3/uL (1.5-5.0); LYMPH % 2.2 % (24.0-44.0); MEAN CORPUSCULAR HGB CONC 31.7 g/dl (32.0-36.5); MONO # 0.9 10^3/uL (0.0-0.8); MONO % 5.8 % (2.0-8.0); NEUTROPHILS # 14.4 10^3/uL (1.5-8.5); PLATELET COUNT, AUTOMATED 138 10^3/uL (150-450); RED BLOOD COUNT 3.41 10^6/uL (4.00-5.40)
[2022-08-14 07:24] LABS: ALBUMIN 1.9 G/DL (3.2-5.2); BILIRUBIN,TOTAL 1.3 MG/DL (0.3-1.2); CALCIUM LEVEL 8.6 MG/DL (8.3-10.6); CREATININE FOR GFR 1.16 MG/DL (0.55-1.30); GLOMERULAR FILTRATION RATE 47.5 (>32); POTASSIUM SERUM 4.4 MMOL/L (3.5-5.1); TOTAL PROTEIN 5.1 G/DL (5.7-8.2)
[2022-08-14] MEDS: OMEPRAZOLE 20MG CAP PO SCH (08:51)
[2022-08-14] MEDS: ASPIRIN 81MG ENTERIC TABLET PO SCH ×2 (08:53→21:00)
[2022-08-14] MEDS: MIDODRINE 5 MG TAB PO SCH ×3 (08:53→17:07)
[2022-08-14] MEDS: rifAXIMin 550 MG TAB (XIFAXAN) PO SCH ×2 (08:54→21:00)
[2022-08-14] MEDS: METAMUCIL (PSYLLIUM) PACKET PO SCH ×2 (09:00→21:00)
[2022-08-14] MEDS: MIRALAX *UNIT DOSE* 17GM PACKET PO SCH ×2 (09:00→21:00)
[2022-08-14] MEDS: FLEET OIL RETENTION ENEMA PR SCH ×2 (09:00→21:00)
[2022-08-14] MEDS: SPIRONOLACTONE 50 MG TAB PO SCH ×2 (13:05→17:07)
[2022-08-14] MEDS: FUROSEMIDE 40 MG TAB PO SCH ×2 (13:07→17:07)
[2022-08-14 14:00] VITALS: BP 115/53
[2022-08-14] MEDS ORDERED: SPIRONOLACTONE 50 MG TAB PO SCH (17:00)
[2022-08-14] MEDS: PRAVASTATIN 20 MG TAB PO SCH (21:00)
[2022-08-14 21:46] VITALS: BP 104/50
[2022-08-15] MEDS: LACTULOSE 20GM/30ML SYRUP UDC PO SCH ×4 (02:00→20:00)
[2022-08-15] MEDS: PIPERACILLIN/TAZOBACTAM SOD 3.375 GM in D5W MINI-BAG PLUS 50 ML IV SCH ×3 (05:05→18:13)
[2022-08-15] MEDS: HEPARIN SOD (PORCINE) 5000UNITS/ML 1ML VIAL/SYRINGE SC SCH ×3 (05:06→21:32)
[2022-08-15] MEDS: LEVOTHYROXINE 112MCG TABLET (0.112MG) PO SCH (05:06)
[2022-08-15 06:18] VITALS: BP 112/61
[2022-08-15 06:24] LABS: BASO % 0.3 % (0.0-1.0); EOS # 0.1 10^3/uL (0.0-0.5); EOS % 0.8 % (0.0-3.0); HEMATOCRIT 30.5 % (36.0-47.0); HEMOGLOBIN 9.1 g/dl (12.0-15.5); LYMPH # 0.3 10^3/uL (1.5-5.0); LYMPH % 1.8 % (24.0-44.0); MEAN CORPUSCULAR HEMOGLOBIN 26.8 pg (27.0-33.0); MEAN CORPUSCULAR HGB CONC 29.8 g/dl (32.0-36.5); MONO # 0.9 10^3/uL (0.0-0.8); MONO % 5.8 % (2.0-8.0); NEUTROPHILS # 13.2 10^3/uL (1.5-8.5); NEUTROPHILS % 89.3 % (36.0-66.0); PLATELET COUNT, AUTOMATED 103 10^3/uL (150-450); RED BLOOD COUNT 3.39 10^6/uL (4.00-5.40); WHITE BLOOD COUNT 14.7 10^3/uL (4.0-10.0)
[2022-08-15 07:52] LABS: ALBUMIN 1.8 G/DL (3.2-5.2); BILIRUBIN,TOTAL 1.2 MG/DL (0.3-1.2); CALCIUM LEVEL 8.2 MG/DL (8.3-10.6); CREATININE FOR GFR 1.25 MG/DL (0.55-1.30); GLOMERULAR FILTRATION RATE 43.6 (>32); POTASSIUM SERUM 4.1 MMOL/L (3.5-5.1); TOTAL PROTEIN 4.9 G/DL (5.7-8.2)
[2022-08-15] MEDS: SPIRONOLACTONE 50 MG TAB PO SCH ×2 (08:23→16:44)
[2022-08-15] MEDS: FUROSEMIDE 40 MG TAB PO SCH ×2 (08:23→16:44)
[2022-08-15] MEDS: MIDODRINE 5 MG TAB PO SCH ×3 (08:23→16:44)
[2022-08-15] MEDS: OMEPRAZOLE 20MG CAP PO SCH (08:23)
[2022-08-15] MEDS: ASPIRIN 81MG ENTERIC TABLET PO SCH ×2 (08:23→21:32)
[2022-08-15] MEDS: rifAXIMin 550 MG TAB (XIFAXAN) PO SCH ×2 (08:23→21:32)
[2022-08-15] MEDS: MIRALAX *UNIT DOSE* 17GM PACKET PO SCH ×2 (08:41→21:00)
[2022-08-15] MEDS: FLEET OIL RETENTION ENEMA PR SCH ×2 (08:41→21:00)
[2022-08-15] MEDS: METAMUCIL (PSYLLIUM) PACKET PO SCH ×2 (08:41→21:00)
[2022-08-15] MEDS: PRAVASTATIN 20 MG TAB PO SCH (21:36)
[2022-08-15 22:23] VITALS: BP 101/54
[2022-08-16] MEDS: LACTULOSE 20GM/30ML SYRUP UDC PO SCH ×4 (02:00→19:54)
[2022-08-16] MEDS: HEPARIN SOD (PORCINE) 5000UNITS/ML 1ML VIAL/SYRINGE SC SCH ×3 (05:13→21:06)
[2022-08-16] MEDS: LEVOTHYROXINE 112MCG TABLET (0.112MG) PO SCH (05:14)
[2022-08-16 06:32] LABS: BASO % 0.1 % (0.0-1.0); HEMATOCRIT 30.6 % (36.0-47.0); HEMOGLOBIN 9.5 g/dl (12.0-15.5); LYMPH # 0.1 10^3/uL (1.5-5.0); MEAN CORPUSCULAR HEMOGLOBIN 27.1 pg (27.0-33.0); MEAN CORPUSCULAR VOLUME 87.4 fl (80.0-96.0); MONO # 0.6 10^3/uL (0.0-0.8); MONO % 4.8 % (2.0-8.0); NEUTROPHILS # 12.5 10^3/uL (1.5-8.5); NEUTROPHILS % 92.8 % (36.0-66.0); PLATELET COUNT, AUTOMATED 115 10^3/uL (150-450); WHITE BLOOD COUNT 13.4 10^3/uL (4.0-10.0)
[2022-08-16 06:57] VITALS: BP 106/61
[2022-08-16 07:01] LABS: BILIRUBIN,TOTAL 1.4 MG/DL (0.3-1.2); CALCIUM LEVEL 8.7 MG/DL (8.3-10.6); CREATININE FOR GFR 1.32 MG/DL (0.55-1.30); GLOMERULAR FILTRATION RATE 40.9 (>32); POTASSIUM SERUM 3.4 MMOL/L (3.5-5.1); TOTAL PROTEIN 5.1 G/DL (5.7-8.2)
[2022-08-16 07:07] VITALS: BP 175/80
[2022-08-16 07:35] VITALS: BP 107/59
[2022-08-16] MEDS: FUROSEMIDE 40 MG TAB PO SCH ×2 (08:34→17:27)
[2022-08-16] MEDS: OMEPRAZOLE 20MG CAP PO SCH (08:35)
[2022-08-16] MEDS: MIDODRINE 5 MG TAB PO SCH ×3 (08:35→17:27)
[2022-08-16] MEDS: rifAXIMin 550 MG TAB (XIFAXAN) PO SCH ×2 (08:36→21:07)
[2022-08-16] MEDS: SPIRONOLACTONE 50 MG TAB PO SCH ×2 (08:36→17:26)
[2022-08-16] MEDS: ASPIRIN 81MG ENTERIC TABLET PO SCH ×2 (08:37→21:06)
[2022-08-16] MEDS: FLEET OIL RETENTION ENEMA PR SCH ×2 (08:40→19:54)
[2022-08-16] MEDS: METAMUCIL (PSYLLIUM) PACKET PO SCH ×2 (08:40→19:54)
[2022-08-16] MEDS: MIRALAX *UNIT DOSE* 17GM PACKET PO SCH ×2 (08:41→19:54)
[2022-08-16] MEDS: NYSTATIN 100,000 UNITS/GM TOPICAL PWD 15GM TOP PRN (08:42)
[2022-08-16] MEDS ORDERED: POTASSIUM CHLORIDE 10MEQ SR TABLET PO ONE (09:00)
[2022-08-16] MEDS ORDERED: LevoFLOXacin 750 MG TABLET PO SCH (09:00)
[2022-08-16 12:29] VITALS: BP 101/62
[2022-08-16] MEDS: PRAVASTATIN 20 MG TAB PO SCH (21:06)
[2022-08-16 23:11] VITALS: BP 102/61
[2022-08-17] MEDS: LACTULOSE 20GM/30ML SYRUP UDC PO SCH ×4 (02:00→20:39)
[2022-08-17] MEDS: HEPARIN SOD (PORCINE) 5000UNITS/ML 1ML VIAL/SYRINGE SC SCH ×3 (05:53→20:39)
[2022-08-17] MEDS: LEVOTHYROXINE 112MCG TABLET (0.112MG) PO SCH (05:53)
[2022-08-17 06:35] VITALS: BP 100/61
[2022-08-17 06:36] LABS: BASO % 0.2 % (0.0-1.0); LYMPH # 0.2 10^3/uL (1.5-5.0); LYMPH % 1.6 % (24.0-44.0); MEAN CORPUSCULAR HEMOGLOBIN 27.8 pg (27.0-33.0); MEAN CORPUSCULAR HGB CONC 31.3 g/dl (32.0-36.5); MEAN CORPUSCULAR VOLUME 88.9 fl (80.0-96.0); MONO # 0.7 10^3/uL (0.0-0.8); MONO % 5.3 % (2.0-8.0); NEUTROPHILS # 11.7 10^3/uL (1.5-8.5); NEUTROPHILS % 90.5 % (36.0-66.0); PLATELET COUNT, AUTOMATED 109 10^3/uL (150-450); WHITE BLOOD COUNT 12.9 10^3/uL (4.0-10.0)
[2022-08-17 07:03] LABS: ALBUMIN 1.9 G/DL (3.2-5.2); BILIRUBIN,TOTAL 1.4 MG/DL (0.3-1.2); CALCIUM LEVEL 9.3 MG/DL (8.3-10.6); CREATININE FOR GFR 1.61 MG/DL (0.55-1.30); GLOMERULAR FILTRATION RATE 32.5 (>32); POTASSIUM SERUM 3.7 MMOL/L (3.5-5.1); TOTAL PROTEIN 5.1 G/DL (5.7-8.2)
[2022-08-17] MEDS: FLEET OIL RETENTION ENEMA PR SCH ×2 (09:00→20:40)
[2022-08-17] MEDS: MIDODRINE 5 MG TAB PO SCH ×3 (09:02→16:51)
[2022-08-17] MEDS: rifAXIMin 550 MG TAB (XIFAXAN) PO SCH ×2 (09:02→20:39)
[2022-08-17] MEDS: OMEPRAZOLE 20MG CAP PO SCH (09:02)
[2022-08-17] MEDS: MIRALAX *UNIT DOSE* 17GM PACKET PO SCH ×2 (09:02→20:40)
[2022-08-17] MEDS: METAMUCIL (PSYLLIUM) PACKET PO SCH ×2 (09:02→20:40)
[2022-08-17] MEDS: ASPIRIN 81MG ENTERIC TABLET PO SCH ×2 (09:02→20:39)
[2022-08-17] MEDS ORDERED: LIDOCAINE 1% MDV 20ML VIAL As Ordered ONE (15:17)
[2022-08-17 20:25] VITALS: BP 105/59
[2022-08-17] MEDS: PRAVASTATIN 20 MG TAB PO SCH (20:39)
[2022-08-18] VITALS (11 sets, daily range): BP systolic 89–104; BP diastolic 51–62
[2022-08-18] MEDS: LACTULOSE 20GM/30ML SYRUP UDC PO SCH ×4 (02:00→21:16)
[2022-08-18] MEDS: LEVOTHYROXINE 112MCG TABLET (0.112MG) PO SCH (05:36)
[2022-08-18] MEDS: HEPARIN SOD (PORCINE) 5000UNITS/ML 1ML VIAL/SYRINGE SC SCH ×3 (05:37→21:10)
[2022-08-18 06:53] LABS: BASO % 0.3 % (0.0-1.0); HEMATOCRIT 33.1 % (36.0-47.0); HEMOGLOBIN 10.2 g/dl (12.0-15.5); LYMPH # 0.1 10^3/uL (1.5-5.0); LYMPH % 0.4 % (24.0-44.0); MEAN CORPUSCULAR HEMOGLOBIN 27.9 pg (27.0-33.0); MEAN CORPUSCULAR HGB CONC 30.8 g/dl (32.0-36.5); MEAN CORPUSCULAR VOLUME 90.4 fl (80.0-96.0); MONO # 0.8 10^3/uL (0.0-0.8); MONO % 6.1 % (2.0-8.0); NEUTROPHILS # 11.2 10^3/uL (1.5-8.5); NEUTROPHILS % 90.9 % (36.0-66.0); RED BLOOD COUNT 3.66 10^6/uL (4.00-5.40); WHITE BLOOD COUNT 12.3 10^3/uL (4.0-10.0)
[2022-08-18 07:01] LABS: PLATELET COUNT, AUTOMATED 99 10^3/uL (150-450)
[2022-08-18 07:26] LABS: ALBUMIN 1.9 G/DL (3.2-5.2); BILIRUBIN,TOTAL 1.4 MG/DL (0.3-1.2); CALCIUM LEVEL 9.1 MG/DL (8.3-10.6); CREATININE FOR GFR 1.82 MG/DL (0.55-1.30); GLOMERULAR FILTRATION RATE 28.2 (>32); POTASSIUM SERUM 3.6 MMOL/L (3.5-5.1); TOTAL PROTEIN 5.3 G/DL (5.7-8.2)
[2022-08-18] MEDS: OMEPRAZOLE 20MG CAP PO SCH (09:19)
[2022-08-18] MEDS: rifAXIMin 550 MG TAB (XIFAXAN) PO SCH ×3 (09:19→21:17)
[2022-08-18] MEDS: MIRALAX *UNIT DOSE* 17GM PACKET PO SCH ×3 (09:20→21:16)
[2022-08-18] MEDS: ASPIRIN 81MG ENTERIC TABLET PO SCH ×3 (09:20→21:16)
[2022-08-18] MEDS: METAMUCIL (PSYLLIUM) PACKET PO SCH ×2 (09:20→21:00)
[2022-08-18] MEDS: MIDODRINE 5 MG TAB PO SCH ×3 (09:20→18:09)
[2022-08-18] MEDS: FUROSEMIDE 40 MG TAB PO SCH (18:09)
[2022-08-18] MEDS: PRAVASTATIN 20 MG TAB PO SCH ×2 (21:00→21:16)
[2022-08-19] VITALS (7 sets, daily range): BP systolic 105–115; BP diastolic 53–55
[2022-08-19] MEDS: LACTULOSE 20GM/30ML SYRUP UDC PO SCH ×2 (02:00→08:14)
[2022-08-19 06:00] LABS: BASO % 0.1 % (0.0-1.0); EOS % 0.1 % (0.0-3.0); HEMATOCRIT 26.9 % (36.0-47.0); HEMOGLOBIN 8.4 g/dl (12.0-15.5); LYMPH # 0.2 10^3/uL (1.5-5.0); LYMPH % 2.7 % (24.0-44.0); MEAN CORPUSCULAR HEMOGLOBIN 28.9 pg (27.0-33.0); MEAN CORPUSCULAR HGB CONC 31.2 g/dl (32.0-36.5); MEAN CORPUSCULAR VOLUME 92.4 fl (80.0-96.0); MONO # 0.4 10^3/uL (0.0-0.8); MONO % 4.2 % (2.0-8.0); NEUTROPHILS # 7.9 10^3/uL (1.5-8.5); NEUTROPHILS % 91.6 % (36.0-66.0); RED BLOOD COUNT 2.91 10^6/uL (4.00-5.40); WHITE BLOOD COUNT 8.6 10^3/uL (4.0-10.0)
[2022-08-19] MEDS: LEVOTHYROXINE 112MCG TABLET (0.112MG) PO SCH (06:00)
[2022-08-19] MEDS: HEPARIN SOD (PORCINE) 5000UNITS/ML 1ML VIAL/SYRINGE SC SCH (06:00)
[2022-08-19 06:01] LABS: PLATELET COUNT, AUTOMATED 48 10^3/uL (150-450)
[2022-08-19 06:32] LABS: BILIRUBIN,TOTAL 1.4 MG/DL (0.3-1.2); CALCIUM LEVEL 9.2 MG/DL (8.3-10.6); CREATININE FOR GFR 1.85 MG/DL (0.55-1.30); GLOMERULAR FILTRATION RATE 27.7 (>32); POTASSIUM SERUM 3.1 MMOL/L (3.5-5.1); TOTAL PROTEIN 4.9 G/DL (5.7-8.2)
[2022-08-19] MEDS ORDERED: POTASSIUM CHLORIDE 10MEQ SR TABLET PO ONE (07:15)
[2022-08-19] MEDS: FUROSEMIDE 40 MG TAB PO SCH (08:14)
[2022-08-19] MEDS: rifAXIMin 550 MG TAB (XIFAXAN) PO SCH (08:14)
[2022-08-19] MEDS: OMEPRAZOLE 20MG CAP PO SCH (08:14)
[2022-08-19] MEDS: ASPIRIN 81MG ENTERIC TABLET PO SCH (08:14)
[2022-08-19] MEDS: MIDODRINE 5 MG TAB PO SCH ×2 (08:15→12:32)
[2022-08-19] MEDS: METAMUCIL (PSYLLIUM) PACKET PO SCH (08:57)
[2022-08-19] MEDS: MIRALAX *UNIT DOSE* 17GM PACKET PO SCH (08:57)
[2022-08-19] MEDS ORDERED: XIFA550T PO (10:26)
[2022-08-19] MEDS ORDERED: MIDO5TA PO (10:26)
[2022-08-19] MEDS ORDERED: COLA100C5 PO (10:26)
[2022-08-19] MEDS ORDERED: FURO40TA2 PO (10:26)
[2022-08-19] MEDS ORDERED: ALDA50TA2 PO (10:26)
[2022-08-19] MEDS ORDERED: LACT20EL PO (10:26)
[2022-08-19] MEDS: SPIRONOLACTONE 50 MG TAB PO SCH (12:31)
== END 2022-08-19 13:10 | disposition home health service (06) | DRG 442 ==
LOC: M ED 11:20 → M ED INP 14:47 → M MS5PR 17:45
PROVIDERS: ADMIT Family Medicine; ATTEND Internal Medicine Nephrology
PROC: 30233J1 Transfusion of Nonautologous Serum Albumin into Peripheral Vein, Percutaneous Approach (ICD-10-PCS; 2022-07-28)
PROC: 0W9G3ZZ Drainage of Peritoneal Cavity, Percutaneous Approach (ICD-10-PCS; principal; 2022-07-28 17:00)
PROC: 0W9G3ZZ Drainage of Peritoneal Cavity, Percutaneous Approach (ICD-10-PCS; 2022-08-02)
PROC: 0W9G3ZX Drainage of Peritoneal Cavity, Percutaneous Approach, Diagnostic (ICD-10-PCS; 2022-08-09)
PROC: 0W9G3ZZ Drainage of Peritoneal Cavity, Percutaneous Approach (ICD-10-PCS; 2022-08-17)
DX: K75.81 Nonalcoholic steatohepatitis (NASH) (principal); R18.8 Other ascites; J98.11 Atelectasis; K76.6 Portal hypertension; N17.9 Acute kidney failure, unspecified; E87.20 Acidosis, unspecified; C78.01 Secondary malignant neoplasm of right lung; C78.02 Secondary malignant neoplasm of left lung; E87.1 Hypo-osmolality and hyponatremia; E87.3 Alkalosis; I10 Essential (primary) hypertension; E03.9 Hypothyroidism, unspecified; D50.9 Iron deficiency anemia, unspecified; Z66 Do not resuscitate; K29.80 Duodenitis without bleeding; K29.70 Gastritis, unspecified, without bleeding; E87.6 Hypokalemia; D63.8 Anemia in other chronic diseases classified elsewhere; M19.90 Unspecified osteoarthritis, unspecified site; K76.82 Hepatic encephalopathy; D69.6 Thrombocytopenia, unspecified; N63.10 Unspecified lump in the right breast, unspecified quadrant; E78.5 Hyperlipidemia, unspecified; K63.89 Other specified diseases of intestine; R42 Dizziness and giddiness; K21.9 Gastro-esophageal reflux disease without esophagitis; R13.10 Dysphagia, unspecified; I95.89 Other hypotension; Z85.828 Personal history of other malignant neoplasm of skin; Z79.82 Long term (current) use of aspirin; K72.10 Chronic hepatic failure without coma; Z92.3 Personal history of irradiation; Z85.3 Personal history of malignant neoplasm of breast; Z79.890 Hormone replacement therapy; Z79.899 Other long term (current) drug therapy

== ENCOUNTER → 2022-08-25 | Outpatient (CLI) | payer MEDICARE, BC ==
[~2022-08-25] MED LIST changes: +ALDA50TA2 PO; +CARV6.25 PO; +COLA100C5 PO; +ECOT81TA5 PO; +LACT20EL PO; +MIDO5TA PO; +SPIR50TA4 PO; +XIFA550T PO
[2022-08-25 14:49] VITALS: BP 105/51
[2022-08-25 15:00] VITALS: BP 109/59
[2022-08-25 15:06] VITALS: BP 100/50
== END ==
LOC: M IRPRO 12:11
PROVIDERS: ATTEND Internal Medicine Gastroenterology
DX: R18.8 Other ascites (principal); K74.60 Unspecified cirrhosis of liver
CPT/HCPCS: 49083; 96374; P9047

== ENCOUNTER 2022-08-26 22:22 | Inpatient (IN) | payer MEDICARE, BC ==
[~2022-08-26] VITALS: Ht 149.9 cm; Wt 70.4 kg
[~2022-08-26 22:22] MED LIST changes: -COZA50TA PO; +LOSA-528 PO; -LOSA100T45 PO; +LOSA100T46 PO; -SPIR50TA4 PO
[2022-08-26 23:25] LABS: HEMATOCRIT 27.6 % (36.0-47.0); HEMOGLOBIN 8.6 g/dl (12.0-15.5); MEAN CORPUSCULAR HEMOGLOBIN 29.8 pg (27.0-33.0); MEAN CORPUSCULAR HGB CONC 31.2 g/dl (32.0-36.5); MEAN CORPUSCULAR VOLUME 95.5 fl (80.0-96.0); RED BLOOD COUNT 2.89 10^6/uL (4.00-5.40); WHITE BLOOD COUNT 5.5 10^3/uL (4.0-10.0)
[2022-08-26 23:34] LABS: CPK CREATINE PHOSPHOKINASE 24 U/L (34-145)
[2022-08-26 23:41] LABS: INR 1.37; PROTHROMBIN TIME 17.1 SECONDS (12.5-14.5)
[2022-08-26 23:42] LABS: PARTIAL THROMBOPLASTIN TIME 31.6 SECONDS (24.8-34.2); PLATELET COUNT, AUTOMATED 23 10^3/uL (150-450)
[2022-08-26 23:44] LABS: ALKALINE PHOSPHATASE 157 U/L (46-116); ALT/SGPT 74 U/L (7.0-40); AST/SGOT 34 U/L (<34); BILIRUBIN,DIRECT 0.8 MG/DL (<0.4); BILIRUBIN,TOTAL 1.2 MG/DL (0.3-1.2); BLOOD UREA NITROGEN 111 MG/DL (9-23); CALCIUM LEVEL 8.2 MG/DL (8.3-10.6); CARBON DIOXIDE LEVEL 21 MMOL/L (20-31); CHLORIDE LEVEL 99 MMOL/L (98-107); CK-MB VALUE MASS 1.8 NG/ML (<3.6); CREATININE FOR GFR 2.09 MG/DL (0.55-1.30); GLOMERULAR FILTRATION RATE 24.1 (>32); POTASSIUM SERUM 4.3 MMOL/L (3.5-5.1); SODIUM LEVEL 132 MMOL/L (136-145)
[2022-08-26 23:49] LABS: ANISOCYTOSIS 2+; GLUCOSE, FASTING 429 MG/DL (74-106); HYPOCHROMASIA 1+; LYMPHOCYTES 2 % (16-44); MONOCYTES 1 % (0-5); MYELOCYTES 1 % (0-0); NEUTROPHILS 92 % (28-66); PLATELET ESTIMATE DECREASED (NORMAL)
[2022-08-26 23:50] LABS: OVALOCYTES 1+; SMUDGE CELLS 1+
[2022-08-27] VITALS: BP 95/52
[2022-08-27 00:04] LABS: LIPASE > 3500 U/L (12-53)
[2022-08-27] MEDS ORDERED: SCOPOLAMINE 1MG TRANSDERMAL PATCH TOP PRN (00:25)
[2022-08-27] MEDS ORDERED: LORazepam 2 MG/ML 1ML VIAL IV PRN (00:25)
[2022-08-27] MEDS ORDERED: ONDANSETRON 4MG 2ML VIAL IV PRN (00:25)
[2022-08-27 00:31] LABS: CK-MB VALUE MASS 1.4 NG/ML (<3.6)
[2022-08-27 00:32] LABS: MB/CK RELATIVE INDEX 7.36 (< OR =4)
[2022-08-27] MEDS ORDERED: FURO40TA2 PO (00:46)
[2022-08-27] MEDS ORDERED: SPIR50TA4 PO (00:46)
[2022-08-27] MEDS ORDERED: HOME MED LIST COMPLETE! XX SCH (00:50)
[2022-08-27] MEDS ORDERED: VITAMIN A & D OINTMENT 42.5GM TOP PRN (18:40)
[2022-08-27] MEDS: MORPHINE 2 MG/ML 1ML VIAL IV PRN (18:46)
[2022-08-28] MEDS: MORPHINE 2 MG/ML 1ML VIAL IV PRN ×3 (03:19→11:37)
== END 2022-08-28 12:22 | disposition expired | DRG 951 ==
LOC: M ED 22:22 → EDBD 22:22 → M ED INP 08-27 00:23 → M MS5PR 08-27 02:19
PROVIDERS: ADMIT Family Medicine; ATTEND Family Medicine
PROC: 0W9G3ZZ Drainage of Peritoneal Cavity, Percutaneous Approach (ICD-10-PCS; principal; 2022-08-25)
DX: Z51.5 Encounter for palliative care (principal); K76.7 Hepatorenal syndrome; K72.00 Acute and subacute hepatic failure without coma; R18.8 Other ascites; C78.01 Secondary malignant neoplasm of right lung; C78.02 Secondary malignant neoplasm of left lung; E87.20 Acidosis, unspecified; K74.60 Unspecified cirrhosis of liver; I12.9 Hypertensive chronic kidney disease with stage 1 through stage 4 chronic kidney disease, or unspecified chronic kidney disease; E03.9 Hypothyroidism, unspecified; K76.82 Hepatic encephalopathy; Z66 Do not resuscitate; I95.89 Other hypotension; N18.9 Chronic kidney disease, unspecified; E87.70 Fluid overload, unspecified; Z85.3 Personal history of malignant neoplasm of breast; D50.9 Iron deficiency anemia, unspecified; K27.9 Peptic ulcer, site unspecified, unspecified as acute or chronic, without hemorrhage or perforation; Z79.82 Long term (current) use of aspirin; Z79.899 Other long term (current) drug therapy; Z79.890 Hormone replacement therapy; D69.59 Other secondary thrombocytopenia; Z86.73 Personal history of transient ischemic attack (TIA), and cerebral infarction without residual deficits